=== PATIENT | female | born 1990 | race Caucasian/White ===

== ENCOUNTER 2020-01-19 12:20 | Emergency (ER) | payer OTHER, SELFPAY ==
[2020-01-19 12:21] VITALS: BP 118/87; PULSE 104; RESP 20; TEMP 37; O2SAT 97; BMI 32.9
--- NOTE | 2020-01-19 12:56 | HMH.EDGENADL ---
ED Disposition Clinical Impression: Mastitis Disposition: Home, Self-Care Condition on Discharge: Good Instructions: DI for Acute Pain -- Adult Additional Instructions: Please apply warm compresses to to the right breast. Prescriptions: Sulfamethoxazole/Trimethoprim [Bactrim DS tablet] 1 each PO BID 10 Days #20 tab Transmission Status: Sent to [id number] Acetaminophen with Codeine [Tylenol with Codeine #3 tablet] 1 each PO QID 3 Days #12 tab Prescription Printed Referrals: Oneil Stoddard MD [Primary Care Provider] - - Critical Care Critical Care Time: No Attestation: On 01/19/20, the high probability of a clinically significant, sudden or life threatening deterioration of the following system(s) required my full and direct attention, intervention and personal management. The time I documented below is in addition to time spent performing reported procedures but includes the following listed in this critical care notation. Medical Decision Making - Medical Records Medical records reviewed: Yes: I reviewed the patient's medical records. - Rodrigo Inquiry Pt receiving controlled substance: No Vital Signs: 01/19/20 12:21 Temperature 98.6 F Temperature Source Oral Pulse Rate [Right] 104 H Respiratory Rate 20 Blood Pressure [Right Arm] 118/87 Blood Pressure Mean [Right Arm] 97 02 Sat by Pulse Oximetry 97 - Lab Data Lab results reviewed: Yes: I reviewed the patient's lab results. Orders (Tests/Meds): ED MEDICATIONS Generic Name Dose Route Start Last Admin Trade Name Freq PRN Reason Stop Dose Admin Ibuprofen 800 mg 01/19/20 12:41 Motrin 600mg Tablet PO 02/18/20 12:40 Q6HP PRN As Needed for Fever or Pain General Adult HPI - General Chief complaint: PAIN Stated complaint: breast pain Time Seen by Provider: 01/19/20 12:56 Mode of Arrival: Ambulatory Source of Information: Patient Limitations: No Limitations Description of Symptoms (Recalled from ER Triage Doc. by RN): Pt is currently in extreme pain in her right breast since 1030 this am after pumping. Pt currently is 10 week PP. States the breast milk pumped from her breast this am was normal in color and no odor. - History of Present Illness HPI narrative: 29-year-old female presents the ED complaining about pain in her right breast. She has been breast-feeding for several weeks now and she states that when she went to breast-feed earlier today that she felt extreme pain in the right breast and also felt warm and she is got some redness on the inner part of the right breast as well. She noticed this about 12 hours ago. And is progressively gotten worse. She rates her pain 8 out of 10 she classifies it as sharp and pressure on a full sensation. She describes no alleviating factors exacerbating factors include any movement whatsoever and also of course pumping or breast-feeding. Onset (ago): hour(s) - Related Data Previous Rx's Medication Instructions Recorded Acetaminophen with Codeine 1 each PO QID 3 Days #12 tab 01/19/20 [Tylenol with Codeine #3 tablet] Sulfamethoxazole/Trimethoprim 1 each PO BID 10 Days #20 tab 01/19/20 [Bactrim DS tablet] Allergies Allergy/AdvReac Type Severity Reaction Status Date / Time NO KNOWN ALLERGIES - NKA Allergy Mild Uncoded 04/11/19 16:34 [facility] History - Hepatitis A Screen Drug use history?: No High risk sexual behaviors?: No History of sexually transmitted infection?: No Currently employed?: No Childcare worker?: No Do you have indoor plumbing?: Yes Do you have electricity?: Yes Attestation statement:: This patient has been screened for Hepatitis A risk factors. I have reviewed the patient's past medical history: Yes Medical History: Reports:: Anxiety, Depression Other Medical History: Reports: Other (aortic stenosis) Other Surgeries: Yes: No Previous Surgery Amputation: No Fractures: No - Social History Smoking Status: Angela
[2020-01-19 13:18] VITALS: BP 120/70; PULSE 98; RESP 16; TEMP 37; O2SAT 98
== END 2020-01-19 13:19 | disposition home or self-care (01) ==
PROVIDERS: Emergency Provider Family Medicine; PCP Family Medicine
DX: F41.8 Other specified anxiety disorders; I35.0 Nonrheumatic aortic (valve) stenosis
CPT/HCPCS: 99281

== ENCOUNTER → 2020-06-15 16:32 | Outpatient (CLI) | payer OTHER, SELFPAY | PROVIDERS: PCP Family Medicine; Visit Provider Family Medicine | DX: Z03.818 Encounter for observation for suspected exposure to other biological agents ruled out (principal) | CPT/HCPCS: U0003 ==

== ENCOUNTER → 2020-10-12 12:16 | Outpatient (CLI) | payer OTHER, SELFPAY ==
[2020-10-12 13:48] LABS: Basophils # 0.1 K/mm3 (0-0.2); Basophils % 0.7 % (0.1-2.0); Eosinophils # 0.1 K/mm3 (0.0-0.4); Eosinophils % 0.9 % (0.1-12.0); Hematocrit 47.6 % (37.0-47.0); Hemoglobin 15.2 g/dL (12.2-16.2); Lymphocytes # 1.8 K/mm3 (0.7-4.5); Lymphocytes % 21.1 % (10-50); Mean Corpuscular HGB Conc 31.8 g/dL (31.8-35.4); Mean Corpuscular Hemoglobin 29.2 pg (27.0-31.2); Mean Corpuscular Volume 91.8 fl (81-99); Mean Platelet Volume 9.3 fl (7.4-10.4); Monocytes # 0.3 K/mm3 (0.1-1.0); Monocytes % 3.7 % (1.7-9.3); Neutrophils # 6.2 K/mm3 (1.8-7.8); Neutrophils % 73.6 % (37.0-80.0); Platelet Count 187 K/mm3 (142-424); Red Blood Count 5.19 M/mm3 (4.20-5.40); White Blood Count 8.4 K/mm3 (4.8-10.8)
== END ==
PROVIDERS: PCP Family Medicine; Visit Provider Family Medicine
DX: Z20.822 Contact with and (suspected) exposure to COVID-19 (principal)
CPT/HCPCS: 85025; U0003

== ENCOUNTER → 2021-07-13 11:54 | Outpatient (CLI) | payer OTHER, SELFPAY ==
[2021-07-13 12:34] LABS: Coronavirus 19, PCR Not Detected (NotDetected); Influenza A, PCR Not Detected (NotDetected); Influenza B, PCR Not Detected (NotDetected)
[2021-07-13 12:48] LABS: Basophils % 0.3 % (0.1-2.0); Eosinophils # 0.1 K/mm3 (0.0-0.4); Eosinophils % 1.3 % (0.1-12.0); Hematocrit 44.4 % (37.0-47.0); Hemoglobin 14.3 g/dL (12.2-16.2); Lymphocytes # 1.9 K/mm3 (0.7-4.5); Lymphocytes % 18.3 % (10-50); Mean Corpuscular HGB Conc 32.3 g/dL (31.8-35.4); Mean Corpuscular Hemoglobin 30.1 pg (27.0-31.2); Mean Corpuscular Volume 93.2 fl (81-99); Mean Platelet Volume 9.6 fl (7.4-10.4); Monocytes # 0.6 K/mm3 (0.1-1.0); Monocytes % 5.7 % (1.7-9.3); Neutrophils # 7.6 K/mm3 (1.8-7.8); Neutrophils % 74.3 % (37.0-80.0); Platelet Count 169 K/mm3 (142-424); Red Blood Count 4.76 M/mm3 (4.20-5.40); Red Cell Distribution Width 12.7 % (11.5-17.5); White Blood Count 10.2 K/mm3 (4.8-10.8)
[2021-07-13 13:49] LABS: Strep Scrn Group A (Rapid) Negative (Negative)
== END ==
PROVIDERS: PCP Family Medicine; Visit Provider Family Medicine
DX: Z20.822 Contact with and (suspected) exposure to COVID-19 (principal)
CPT/HCPCS: 36415; 85025; 87430; C9803; U0003; U0005

== ENCOUNTER → 2021-09-20 09:55 | Outpatient (CLI) | payer OTHER, SELFPAY | PROVIDERS: Visit Provider Nurse Practitioner | DX: U07.1 COVID-19 (principal) | CPT/HCPCS: C9803; U0003; U0005 ==

== ENCOUNTER → 2021-10-12 10:31 | Outpatient (CLI) | payer OTHER, SELFPAY ==
[2021-10-12 10:59] LABS: Basophils # 0.2 K/mm3 (0-0.2); Basophils % 3.3 % (0.1-2.0); Eosinophils # 0.1 K/mm3 (0.0-0.4); Hematocrit 42.4 % (37.0-47.0); Hemoglobin 13.5 g/dL (12.2-16.2); Lymphocytes # 1.9 K/mm3 (0.7-4.5); Lymphocytes % 26.6 % (10-50); Mean Corpuscular HGB Conc 31.8 g/dL (31.8-35.4); Mean Corpuscular Hemoglobin 29.8 pg (27.0-31.2); Mean Corpuscular Volume 93.9 fl (81-99); Mean Platelet Volume 10.1 fl (7.4-10.4); Monocytes # 0.4 K/mm3 (0.1-1.0); Monocytes % 5.9 % (1.7-9.3); Neutrophils # 4.8 K/mm3 (1.8-7.8); Neutrophils % 66.5 % (37.0-80.0); Platelet Count 172 K/mm3 (142-424); Red Blood Count 4.52 M/mm3 (4.20-5.40); Red Cell Distribution Width 13.3 % (11.5-17.5); White Blood Count 7.2 K/mm3 (4.8-10.8)
[2021-10-14 03:37] LABS: HIV Screen 4th Generation wRfx Non Reactive (Non Reactive)
[2021-10-14 06:16] LABS: HSV 1 IgG, Type Spec <0.91 index (0.00-0.90); HSV 2 IgG, Type Spec <0.91 index (0.00-0.90); Rubella Antibodies, IgG 5.97 index (Immune >0.99)
[2021-10-14 08:15] LABS: Hepatitis B Surface Antigen Negative (Negative); Hepatitis C Antibody <0.1 s/co ratio (0.0-0.9)
[2021-10-14 10:11] LABS: Rapid Plasma Reagin Ab Titer Non Reactive (NonRea<1:1)
== END ==
PROVIDERS: PCP Family Medicine; Visit Provider Nurse Practitioner Obstetrics & Gynecology
DX: Z34.90 Encounter for supervision of normal pregnancy, unspecified, unspecified trimester (principal); Z3A.01 Less than 8 weeks gestation of pregnancy
CPT/HCPCS: 36415; 85025; 86592; 86695; 86703; 86762; 86790; 86850; 87340; 87380; G0432

== ENCOUNTER → 2021-10-18 14:59 | Outpatient (CLI) | payer OTHER, SELFPAY ==
--- NOTE | 2021-10-18 15:03 | US_ITS ---
FINAL REPORT CLINICAL HISTORY: US OB Before 14 wks for DATES/Confirmation of preg FINDINGS: Sonographic images of the pelvis were obtained. There is a single living intrauterine . Average ultrasound age is 7 weeks, 5 days. Yolk sac measures 0.48 cm. Green-rump length is 1.32 cm consistent with 7 week 5 day gestation. Heart rate is detected at 157 bpm. The right ovary measures 2.54 x 1.1 x 1.6 cm. Left ovary measures 4.8 x 4.5 x 4.5 cm. There is a 4.0 cm left ovarian cyst, likely corpus luteum. IMPRESSION: Single living intrauterine . Reviewed, Interpreted and Dictated by Patric Mendez III, MD Transcribed by Yanci Longoria Authenticated by Patric Mendez III, MD on 10/19/2021 09:06:36 AM [facility]
== END ==
PROVIDERS: PCP Family Medicine; Visit Provider Nurse Practitioner Obstetrics & Gynecology
DX: O26.841 Uterine size-date discrepancy, first trimester (principal)
CPT/HCPCS: 76801

== ENCOUNTER → 2022-01-08 13:56 | Outpatient (CLI) | payer OTHER, SELFPAY ==
--- NOTE | 2022-01-08 13:57 | US_ITS ---
FINAL REPORT CLINICAL HISTORY: 20 weeks gestation FINDINGS: There is a single live intrauterine gestation. Presentation is breech. The cervix is closed and measures 3.7 cm . Placenta is posterior grade 1. movement is noted. Heart rate is measured at 144 beats per minute. Three-vessel cord with satisfactory umbilical cord insertion. Four-chamber heart is noted. brain and ventricles are unremarkable. Chest and diaphragm are unremarkable. ABDOMEN: Both kidneys are unremarkable. Stomach is unremarkable. SPINE: No anomalies identified. Both arms and legs noted. AMNIOTIC FLUID: Appropriate amount. MEASUREMENTS: ULTRASOUND AGE: 19 weeks 2 days. GESTATION AGE: 19 weeks 3 days. ESTIMATED WEIGHT: 288 g GROWTH PERCENTILE: 41% BPD: 4.4 cm corresponding with 19 weeks 2 days. OFD: 5.6 cm corresponding with 19 weeks 5 days. HC: 15.8 cm corresponding with 18 weeks 5 days. AC: 13.9 cm corresponding with 19 weeks 2 days. FL: 3.1 cm corresponding with 19 weeks 5 days. HC/AC: 1.14 CI: 77% FL/BPD: 71% FL/AC: 22% IMPRESSION: Single living IUP with an ultrasound age of 19 weeks 2 days. No anomalies noted. Reviewed, Interpreted and Dictated by Patric Mendez III, MD Transcribed by Zoe Townsend Authenticated by Patric Mendez III, MD on 01/08/2022 05:01:25 PM [facility]
== END ==
PROVIDERS: PCP Family Medicine; Visit Provider Nurse Practitioner Obstetrics & Gynecology
DX: Z34.90 Encounter for supervision of normal pregnancy, unspecified, unspecified trimester (principal); Z3A.20 20 weeks gestation of pregnancy
CPT/HCPCS: 76811

== ENCOUNTER → 2022-03-03 07:57 | Outpatient (CLI) | payer OTHER, SELFPAY ==
[2022-03-03 08:24] LABS: Glucose,Fasting 95 mg/dl (74-100)
[2022-03-03 09:47] LABS: Glucose 1 Hour 147 mg/dL (74-100)
== END ==
PROVIDERS: PCP Family Medicine; Visit Provider Nurse Practitioner Obstetrics & Gynecology
DX: Z34.90 Encounter for supervision of normal pregnancy, unspecified, unspecified trimester (principal)
CPT/HCPCS: 36415; 82951

== ENCOUNTER → 2022-03-10 07:57 | Outpatient (CLI) | payer OTHER, SELFPAY ==
[2022-03-10 08:39] LABS: Glucose,Fasting 93 mg/dl (74-100)
[2022-03-10 10:38] LABS: Glucose 1 Hour 171 mg/dL (74-100)
[2022-03-10 10:53] LABS: Glucose 2 Hour 124 mg/dL (74-100)
[2022-03-10 12:40] LABS: Glucose 3 Hour 136 mg/dL (74-100)
== END ==
PROVIDERS: PCP Family Medicine; Visit Provider Obstetrics & Gynecology
DX: Z34.90 Encounter for supervision of normal pregnancy, unspecified, unspecified trimester; R73.09 Other abnormal glucose
CPT/HCPCS: 36415; 82951

== ENCOUNTER 2022-04-24 16:47 | Outpatient (RCR) | payer OTHER, SELFPAY | END 2022-04-24 17:20 | disposition home or self-care (01) | LOC: OT 16:47 | DX: G56.03 Carpal tunnel syndrome, bilateral upper limbs (principal) | CPT/HCPCS: 97763 ==

== ENCOUNTER → 2022-05-08 06:26 | Outpatient (CLI) | payer OTHER, SELFPAY | PROVIDERS: Visit Provider Nurse Practitioner Obstetrics & Gynecology | DX: Z34.90 Encounter for supervision of normal pregnancy, unspecified, unspecified trimester (principal) | CPT/HCPCS: 86403 ==

== ENCOUNTER 2022-05-23 05:46 | Inpatient (IN) | payer OTHER, SELFPAY ==
[2022-05-23] VITALS (12 sets, daily range): BP systolic 126–155; BP diastolic 74–88; PULSE 83–96; RESP 14–20; TEMP 36.2–36.7; O2SAT 95–99; BMI 39.1
[2022-05-23 04:38] LABS: Microscopic, Urine URINE MICROSCOPIC (MICROSCOPIC)
[2022-05-23 04:40] LABS: Appearance,Urine CLEAR (Clear); Bilirubin,Urine Negative (Negative); Blood, Urine 2+ (Negative); Color,Urine YELLOW (Yellow); Fetal Membrane Rupture (Rapid) Positive (Negative); Glucose,Urine (UA) Negative (Negative); Ketones,Urine Negative (Negative); Leukocyte Esterase,Urine TRACE (Negative); Nitrate,Urine Negative (Negative); PH,Urine 6.5 (5.0-8.5); Protein,Urine Negative (Negative); Specific Gravity, Urine <= 1.005 (1.005-1.030); Urobilinogen,Urine 0.2 EU/dl (0.2)
[2022-05-23 04:53] LABS: Barbiturates Screen,Urine Negative ng/ml (<200); Benzodiazepines Screen,Urine Negative ng/ml (<200)
[2022-05-23 04:54] LABS: Amphetamine/Metha Screen,Urine Negative ng/ml (<1000)
[2022-05-23 04:55] LABS: Cannabinoid Screen,Urine Negative ng/ml (<50); Cocaine Screen,Urine Negative ng/ml (<300)
[2022-05-23 04:56] LABS: Methadone Screen,Urine Negative ng/ml (<300); Opiate Screen,Urine Negative ng/ml (<300)
[2022-05-23 04:57] LABS: Phencyclidine Screen,Urine Negative ng/ml (<25)
[2022-05-23 05:25] LABS: Coronavirus 19, PCR Not Detected (NotDetected); Influenza A, PCR Not Detected (NotDetected); Influenza B, PCR Not Detected (NotDetected)
[2022-05-23 05:33] LABS: Basophils # 0.1 K/mm3 (0-0.2); Basophils % 1.1 % (0.1-2.0); Chloride 109 mmol/L (98-107); Eosinophils # 0.1 K/mm3 (0.0-0.4); Eosinophils % 0.8 % (0.1-12.0); Hemoglobin 13.5 g/dL (12.2-16.2); Lymphocytes % 19.4 % (10-50); Mean Corpuscular HGB Conc 32.8 g/dL (31.8-35.4); Mean Corpuscular Hemoglobin 29.9 pg (27.0-31.2); Mean Corpuscular Volume 91.1 fl (81-99); Mean Platelet Volume 10.6 fl (7.4-10.4); Monocytes # 0.6 K/mm3 (0.1-1.0); Monocytes % 5.5 % (1.7-9.3); Neutrophils # 7.6 K/mm3 (1.8-7.8); Neutrophils % 73.1 % (37.0-80.0); Platelet Count 155 K/mm3 (142-424); Potassium 3.9 mmoL/L (3.5-5.1); Red Blood Count 4.51 M/mm3 (4.20-5.40); Red Cell Distribution Width 14.8 % (11.5-17.5); Sodium 137 mmol/L (136-145); White Blood Count 10.3 K/mm3 (4.8-10.8)
[2022-05-23 05:36] LABS: Anion Gap 10.9 mEq/L (5-15); Blood Urea Nitrogen 6 mg/dl (7-17); Calcium 7.8 mg/dl (8.4-10.2); Carbon Dioxide 21 mmol/L (22.0-30.0); Creatinine Clearance Estimated 208 mL/min (50-200); Estimated Glomerular Filt Rate 117 ml/min (>60); GFR (African American) 141 ML/MIN (>60); Glucose 85 mg/dl (74-100)
[2022-05-23 05:37] LABS: Bacteria,Urine 1+ /lpf; Squamous Epithelial Cell,Urine 20-50 #/hpf (0-5); WBC,Urine Occasional #/hpf (0-3)
--- NOTE | 2022-05-23 06:05 | PC.NURSE ---
CALL FROM LAURIE CARR STATED EMERGENT .
--- NOTE | 2022-05-23 06:06 | PC.NURSE ---
SPOKE WITH DIDI FOR ANESTHESIA.
--- NOTE | 2022-05-23 06:08 | PC.NURSE ---
SPOKE WITH BISMARK
--- NOTE | 2022-05-23 07:52 | EXP.OP.NOTE ---
Date of procedure: 05/23/22 Pre-op Diagnosis:: Term , bicuspid aortic valve, Post-op Diagnosis:: Term , bicuspid aortic valve, direct OP position. Procedure performed:: Primary lower segment transverse section Surgeon:: Arnie Rajput MD Access Specialist(s):: Dr. Tomas SOLAR PV INSTALLER:: Other (Rj Shahid) Anesthesia: spinal Estimated blood loss (mL): 1,500 Clinical Note:: She is a 31-year-old 2 para 1 who was 38 and 6 weeks gestational age. She was scheduled for a primary tomorrow. She came in in active labor with ruptured membranes. She changed her cervix from 0 to 4 cm. As result of that we elected to perform her section urgently. It was recommended that she have a section because she has a bicuspid aortic valve and throughout the her pressures have risen across the valve from 12-28. It was recommended that she have a section and not push in labor. As result of that she was offered primary lower segment transverse section. Operative findings:: She delivered a liveborn female child at 6:58 AM on the morning of May 23, 2022. The baby had Apgars of 8 at 1 minute and 9 at 5 minutes. The baby was in the direct OP position. Ovaries and tubes appeared normal. Operative note:: She was taken to the operating room where spinal anesthesia was found be adequate. She was prepped and draped in normal sterile fashion in the supine position with a leftward tilt. A Arizmendi catheter was in the bladder. A Pfannenstiel skin incision was made with knife then carried through to the underlying layer of fascia with cautery. The fascia was opened in the midline with cautery and extended laterally using Enriquez scissors. Michele clamps were applied to the superior aspect of the fascial incision which was tented up and the underlying rectus muscles dissected off using cautery. The Rye clamps were then applied to the inferior aspect of the fascial incision which in a similar fashion was tented up and the underlying rectus muscles dissected off using cautery. The rectus muscles were then in the midline, the peritoneum identified, and entered sharply with Metzenbaum scissors. This incision was then extended superiorly and inferiorly with cautery. We had good visualization of the bladder inferiorly. An Lamont retractor was placed within the abdominal cavity. The bladder peritoneum was then opened in the midline and extended laterally using Metzenbaum scissors. A bladder flap was created digitally. Transverse incision was made through the uterine muscle to the amnion. This incision was then extended laterally using fingers traction pulling superiorly and inferiorly.. The amnion was entered sharply with knife. There was clear amniotic fluid. The infant's head was then delivered atraumatically. A loose nuchal cord was then reduced. This was followed by the anterior shoulder and the rest of the 's body atraumatically. The oropharynx and nasopharynx were bulb suctioned. The baby was vigorous so we allowed the cord to continue to pulsate for approximately 1 minute. The cord was then doubly clamped and cut. The infant was then handed off to Dr. Lau who assigned Apgars of 8 at 1 minute and 9 at 5 minutes. We then obtained cord blood. Using gentle traction on the cord and countertraction on the fundus I was able to easily deliver the placenta intact. It had a normal three-vessel cord. The uterus was then cleared of clots and debris . There was some bleeding along the left side of the incision and the vessel was pumping air so we placed a clamp here. The uterine incision was then closed using running 0 Vicryl suture in a locked fashion. A second layer of the same suture was used to imbricate the first layer. There was bleeding in the medial aspect of the incision and interrupted [id number] Vicryl sutures were used to obtain excellent hemostasis. The bladder peritoneum was then closed u
--- NOTE | 2022-05-23 08:01 | EXP.ANES.CKL ---
[facility] Social History Smoking Status: Never smoker alcohol intake: never substance use type: denies use current occupational status: employed Travel in the last 8 weeks: None [facility] Anesthesia Checklist Patient Identification Patient Identification: Arm Band and Verbal (Name & ) Structural Data Admitted From: Home Planned Operative Procedure/s: Consent for Planned Operative Procedure(s) Verified: Yes Verified Documents: Surgical Consent NPO Status Verified Time NPO: 00:00 Chart Verification Results Verified: H & H Additional verifications Patient : Yes Anesthesia Reactions: No Hx Blood Transfusions: No Blood Transfusion Reaction: No Cephalosporin Allergy: No Airway Assessment C-Spine Mobility Assessed: Yes TMJ Mobility Assessed: Yes Dentition: Good Dentition Neurological Assessment Level of Consciousness: Awake, Alert and Appropriate Anesthesia Plan Anesthesia Risk discussed: Yes ASA Class: II Anesthesia Type: Spinal
--- NOTE | 2022-05-23 08:02 | P.PNANES_ITS ---
[facility] Anesthesia Record Part I Anesthesia Record I Intake, IV Amount: 1,100 Estimated blood loss (mL): 1,500 Urine output (mL): 100 Blood Pressure: 147/86 SaO2: 95 Pulse Rate: 86 Respiratory Rate: 14 Temperature: 97.1 F Patient is:: Drowsy Stable to PACU at:: 07:56
--- NOTE | 2022-05-23 08:02 | EXP.HP ---
History of Present Illness *Admission Date: 05/23/22 *Reason for visit:: Term , bicuspid aortic valve, active labor, SROM *History of present illness: She is a 31-year-old 2 para 1 at 38+6 weeks gestational age. She came in with ruptured membranes and active labor. She changed her cervix from 0 to 4 cm and as result of that we elected to perform a primary lower segment transverse section. She is also group B streptococcus positive. PFSH PFS Social History Smoking Status: Never smoker alcohol intake: never substance use type: denies use current occupational status: employed Travel in the last 8 weeks: None Review of Systems Review of Systems Review of systems:: pertinent systems reviewed and negative unless documented below Meds Home Medications and Allergies Home Medications Medication Instructions Recorded Confirmed Type prenat.vits,elfego,hca-ghfl-sdloj 1 tab PO DAILY 01/03/22 05/22/22 History ferrous sulfate 325 mg (65 mg 325 mg PO DAILY #30 tabs 01/08/22 05/22/22 Rx iron) tablet New Prescriptions to Start Prescriptions: Allergies Allergy/AdvReac Type Severity Reaction Status Date / Time No Known Allergies Allergy Verified 05/22/22 16:01 Exam Data for Last 24 hours Vital signs and Labs for Last 24 Hours: Temp Pulse Resp BP Pulse Ox 98.1 F 96 H 20 126/85 99 05/23/22 04:35 05/23/22 04:35 05/23/22 04:35 05/23/22 04:35 05/23/22 04:35 Laboratory Results - last 24 hr 05/23/22 04:13: Urine Color Yellow, Urine Appearance Clear, Urine pH 6.5, Ur Specific [place] <= 1.005, Urine Protein Negative, Urine Glucose (UA) Negative, Urine Ketones Negative, Urine Blood 2+, Urine Nitrate Negative, Urine Bilirubin Negative, Urine Urobilinogen 0.2, Ur Leukocyte Esterase Trace, Urine RBC 5-10, Urine WBC Occasional, Ur Squamous Epith Cells 20-50, Urine Bacteria 1+ 05/23/22 04:13: Membrane Rupture Positive A 05/23/22 04:13: Urine Opiates Screen Negative, Urine Methadone Screen Negative, Ur Barbituates Screen Negative, Ur Phencyclidine Scrn Negative, Ur Amphetamines Screen Negative, U Benzodiazepines Scrn Negative, Urine Cocaine Screen Negative, U Marijuana (THC) Screen Negative 05/23/22 05:10: WBC 10.3, RBC 4.51, Hgb 13.5, Hct 41.0, MCV 91.1, MCH 29.9, MCHC 32.8, RDW 14.8, Plt Count 155, MPV 10.6 H, Neut % (Auto) 73.1, Lymph % (Auto) 19.4, [place] % (Auto) 5.5, Eos % (Auto) 0.8, Baso % (Auto) 1.1, Neut # (Auto) 7.6, Lymph # (Auto) 2.0, [place] # (Auto) 0.6, Eos # (Auto) 0.1, Baso # (Auto) 0.1 05/23/22 05:10: Sodium 137, Potassium 3.9, Chloride 109 H, Carbon Dioxide 21 L, Anion Gap 10.9, BUN 6 L, Creatinine 0.60, Estimated Creat Clear 208, Estimated GFR 117, Est GFR ( Amer) 141, Glucose 85, Calcium 7.8 L 05/23/22 05:10: Blood Type O Positive, Antibody Screen Negative 05/23/22 05:15: SARS-CoV-2 (PCR) Not detected, Influenza A Untype (PCR) Not detected, Influenza Type B (PCR) Not detected I & O for Last 24 hours: Intake & Output 05/20/22 05/21/22 05/22/22 05/23/22 11:59 11:59 11:59 11:59 Weight 214 lb Constitutional Constitutional: no acute distress *Routine HEENT Exam Head: Present normocephalic Eye: Present EOMI and PERRL ENT: Present mucous membranes moist *Routine Neck Exam Neck: Present supple and full ROM *Routine Respiratory Exam Respiratory: Absent accessory muscle use (good air entry bilaterally), wheezes or crackles *Routine Cardiovascular Exam Cardiovascular: Present RRR; Absent murmur *Routine Abdominal Exam Abdominal: Present soft and normoactive bowel sounds; Absent tenderness, rebound, guarding or mass *Routine Rectal Exam Rectal:: deferred *Routine Genitalia Exam Genitalia:: normal female Comment:: 4 cm dilated. *Routine Extremities Exam Extremities: Present full ROM; Absent cyanosis, edema or calf tenderness *Routine Skin Exam Skin: Present intact (good color) *Routine Neurological E
--- NOTE | 2022-05-23 08:04 | P.CONPHA_ITS ---
[facility] VTE Monitoring Patient Demographics Admission date: 05/22/22 Report Date: 05/23/22 Time: 08:05 Patient Allergies No Known Allergies Allergy (Verified 05/22/22 16:01) Height: 1.57 m Weight: 97.069 kg VTE Risk Labs: VTE Related Lab Results Hgb 13.5 g/dL (12.2-16.2) 05/23/22 05:10 Hct 41.0 % (37.0-47.0) 05/23/22 05:10 Plt Count 155 K/mm3 (142-424) 05/23/22 05:10 BUN 6 mg/dl (7-17) L 05/23/22 05:10 Creatinine 0.60 mg/dl (0.52-1.04) 05/23/22 05:10 Estimated Creat Clear 208 mL/min (50-200) 05/23/22 05:10 Clinical Trial Participant: No Prophylaxis VTE Prophylaxis Ordered?: Yes Types of VTE Prophylaxis: TEDS Knee High
--- NOTE | 2022-05-23 09:24 | EXP.ANES.II ---
[facility] Anesthesia Record Part II Anesthesia Record Part II Destination: Obstetric PACU nurse assessment reviewed?: Yes Patient Condition:: Good Anesthesia Complications:: None Swallowing reflex intact?: Yes Cyanosis?: No Mental Status: Alert & Oriented Pain level:: 0 Nausea and/or vomitting:: None Intake, IV Amount: 0
[2022-05-23 14:38] LABS: Microscopic,Cath URINE MICROSCOPIC (MICROSCOPIC)
[2022-05-23 14:43] LABS: Appearance,Urine/Cath CLEAR (Clear); Bilirubin,Cath Negative (Negative); Blood, Urine/Cath 3+ (Negative); Color,Urine/Cath YELLOW (Yellow); Glucose,Urine/Cath (UA) Negative (Negative); Ketones,Urine/Cath Negative (Negative); Leukocyte Esterase,Cath Negative (Negative); Nitrate,Cath Negative (Negative); Protein,Urine/Cath Negative (Negative); Urobilinogen,Cath 0.2 EU/dl (0.2)
[2022-05-23 15:28] LABS: RBC,Urine/Cath 20-50 # /hpf (0-3)
[2022-05-23 16:35] LABS: Hematocrit 45.7 % (37.0-47.0); Hemoglobin 14.5 g/dL (12.2-16.2)
[2022-05-24 07:20] LABS: Basophils % 0.1 % (0.1-2.0); Eosinophils % 0.3 % (0.1-12.0); Hematocrit 30.9 % (37.0-47.0); Lymphocytes # 1.6 K/mm3 (0.7-4.5); Lymphocytes % 17.1 % (10-50); Mean Corpuscular HGB Conc 33.1 g/dL (31.8-35.4); Mean Corpuscular Hemoglobin 30.2 pg (27.0-31.2); Mean Corpuscular Volume 91.4 fl (81-99); Mean Platelet Volume 9.9 fl (7.4-10.4); Monocytes # 0.5 K/mm3 (0.1-1.0); Monocytes % 5.4 % (1.7-9.3); Platelet Count 139 K/mm3 (142-424); Red Blood Count 3.38 M/mm3 (4.20-5.40); Red Cell Distribution Width 14.9 % (11.5-17.5); White Blood Count 9.1 K/mm3 (4.8-10.8)
[2022-05-24 07:22] LABS: Hemoglobin 10.2 g/dL (12.2-16.2)
--- NOTE | 2022-05-24 09:13 | EXP.ACUTE.PN ---
Subjective *Date: 05/24/22 *Time: 09:13 Interval history: She is doing well this morning. Her hemoglobin is 10.1. She complains of burning pain in her incision. She did have a tap block yesterday. Her vitals are otherwise stable. Medical Exam Vital signs and Labs for Last 24 Hours: Temp Pulse Resp BP Pulse Ox 97.1 F L 86 14 147/86 H 99 05/23/22 08:04 05/23/22 08:04 05/23/22 08:04 05/23/22 08:04 05/23/22 04:35 Laboratory Results - last 24 hr 05/23/22 06:45: Urine Color Yellow, Urine Appearance Clear, Urine pH 6.0, Ur Specific [place] 1.010, Urine Protein Negative, Urine Glucose (UA) Negative, Urine Ketones Negative, Urine Blood 3+, Urine Nitrate Negative, Urine Bilirubin Negative, Urine Urobilinogen 0.2, Ur Leukocyte Esterase Negative, Urine RBC 20-50, Urine WBC None, Ur Squamous Epith Cells None, Urine Bacteria None 05/23/22 16:15: Hgb 14.5, Hct 45.7 05/24/22 06:30: WBC 9.1, RBC 3.38 L D, Hgb 10.2 L D, Hct 30.9 L, MCV 91.4, MCH 30.2, MCHC 33.1, RDW 14.9, Plt Count 139 L, MPV 9.9, Neut % (Auto) 77.0, Lymph % (Auto) 17.1, [place] % (Auto) 5.4, Eos % (Auto) 0.3, Baso % (Auto) 0.1, Neut # (Auto) 7.0, Lymph # (Auto) 1.6, [place] # (Auto) 0.5, Eos # (Auto) 0.0, Baso # (Auto) 0.0 I & O for Labs for Last 24 Hours: Intake & Output 05/21/22 05/22/22 05/23/22 05/24/22 11:59 11:59 11:59 11:59 Intake Total 1100 / 1100 Balance 1100 / 1100 Weight 214 lb Head: Present atraumatic Neck: Present normal inspection Respiratory: Present normal respiratory effort GI: Present soft and scar (Her incision is clean and dry.); Absent distention or tenderness Rectal (female): Present deferred Assessment and Plan *Assessment and plan (1) delivery delivered: Status: Acute Category: Medical Code(s): O82 - Encounter for delivery without indication (2) Delayed delivery after SROM (spontaneous rupture of membranes): Status: Acute Category: Medical Code(s): O42.90 - Premature rupture of membranes, unspecified as to length of time between rupture and onset of labor, unspecified weeks of gestation (3) Aortic valve defect: Status: Acute Category: Medical Code(s): I35.9 - Nonrheumatic aortic valve disorder, unspecified Assessment and plan all Dx Assessment and Plan All Dx:: She is doing well although she does have some burning in her incision. On examination of her abdomen the incision actually is nontender and she cannot feel the incision at all after the tap block. I suspect the discomfort she has is on the inside. She has taken some hydromorphone and this seemed to help. We will continue with her Tylenol, ibuprofen and we will start oral hydromorphone. She should be able to go home tomorrow.
--- NOTE | 2022-05-25 10:04 | EXP.ANES.II ---
[facility] Anesthesia Record Part II Anesthesia Record Part II Discharge Time: 08:26 Destination: Obstetric PACU nurse assessment reviewed?: Yes Patient Condition:: Good Anesthesia Complications:: None Swallowing reflex intact?: Yes Cyanosis?: No Blood Pressure: 143/74 Pulse Rate: 87 Temperature: 97.1 F Mental Status: Alert & Oriented Pain level:: 0 Nausea and/or vomitting:: None Intake, IV Amount: 0
[2022-05-25 10:05] VITALS: BP 143/74; PULSE 87; TEMP 36.2
--- NOTE | 2022-05-25 10:05 | SUR.PHASEI ---
[id number]- 400 ml of clear, yellow urine emptied from f/c upon d/c from pacu.
--- NOTE | 2022-05-25 12:31 | EXP.DC.SUM ---
General Admission date:: 05/23/22 Discharge date: 05/25/22 HPI HPI HPI: She is a 31-year-old 2 para 1 at 38+6 weeks gestational age. She came in with ruptured membranes and active labor. She changed her cervix from 0 to 4 cm and as result of that we elected to perform a primary lower segment transverse section. She is also group B streptococcus positive. Hospital Course Hospital Course Hospital Course: Postop course uncomplicated She is discharged home on POD #2 in stable condition She is tolerating a regular diet She is ambulatnig and voiding without difficulty Lochia is small She had insufficient pain relief with oxycodone and was switched to dilaudid Exam Data for Last 24 hours Vital signs and Labs for Last 24 Hours: Temp Pulse Resp BP Pulse Ox 97.1 F L 87 20 143/74 H 96 05/25/22 10:05 05/25/22 10:05 05/25/22 08:01 05/25/22 10:05 05/25/22 08:01 I & O for Last 24 hours: Intake & Output 05/23/22 05/24/22 05/25/22 05/26/22 11:59 11:59 11:59 11:59 Intake Total 1100 / 1100 0 / 0 Balance 1100 / 1100 0 / 0 Weight 214 lb Constitutional Constitutional: no acute distress *Routine HEENT Exam Head: Present normocephalic Eye: Absent conjunctival icterus or scleral injection ENT: Present mucous membranes moist *Routine Neck Exam Neck: Present supple *Routine Respiratory Exam Respiratory: Present CTA bilaterally *Routine Cardiovascular Exam Cardiovascular: Present RRR *Routine Abdominal Exam Abdominal: Present soft; Absent tenderness or distended *Routine Rectal Exam Patient deferred: visual exam and digital exam *Routine Exam Patient deferred: external exam Comments: Fundus firm below umbilicus *Routine Extremities Exam Extremities: Present edema *Routine Skin Exam Skin: Present intact and dry Comments: Incision intact without erythema or purulent drainage *Routine Neurological Exam Neurological: Present alert and oriented X3 Routine Psychiatric Exam Psychiatric: Present normal affect; Absent depressed DS: Diagnosis Discharge Diagnosis (1) delivery delivered: Status: Acute (2) Delayed delivery after SROM (spontaneous rupture of membranes): Status: Acute (3) Aortic valve defect: Status: Acute Meds Home Medications and Allergies Home Medications Medication Instructions Recorded Confirmed Type prenat.vits,elfego,yqd-ifqw-igbyn 1 tab PO DAILY Supplement 01/03/22 05/23/22 History ferrous sulfate 325 mg (65 mg 325 mg PO DAILY IRON SUPPLEMENT 05/23/22 05/23/22 History iron) tablet acetaminophen 325 mg tablet 650 mg PO Q6HP #30 tabs 05/25/22 Rx hydromorphone 2 mg tablet 2 mg PO Q6HP PRN Moderate To 05/25/22 Rx Severe Pain #30 tabs ibuprofen 400 mg tablet 800 mg PO Q6HP PRN Mild To 05/25/22 Rx Moderate Pain #40 tabs New Prescriptions to Start Prescriptions: acetaminophen Michel Doughertya hydromorphone Farhat,Елена ibuprofen Елена Dougherty Allergies Allergy/AdvReac Type Severity Reaction Status Date / Time No Known Allergies Allergy Verified 05/22/22 16:01 Discharge Plan Disposition Patient Disposition: Home, Self-Care Discharge Order Discharge Orders: Discharge Order (Routine); Ordered 05/25/22 Ordered By: Елена Dougherty Follow up Plan Prescriptions/Medication Reconciliation: New acetaminophen 325 mg Tablet 650 mg PO Q6HP Qty: 30 0RF hydromorphone 2 mg Tablet 2 mg PO Q6HP PRN (Reason: Moderate To Severe Pain) Qty: 30 0RF ibuprofen 400 mg Tablet 800 mg PO Q6HP PRN (Reason: Mild To Moderate Pain) Qty: 40 0RF Continued prenat.vits,elfego,fbr-khsu-npsme Tablet 1 tab PO DAILY ferrous sulfate 325 mg (65 mg iron) tablet 325 mg PO DAILY Problem Reconciliation Problems Reviewed?: Yes Patient Discharge Instructions ACTIVITY: Continue current activity DIET: regular diet Prov
== END 2022-05-25 16:50 | disposition home or self-care (01) | DRG 786 ==
LOC: OBOUT 05:47 → OB 05:47
PROVIDERS: Admitting Provider Nurse Practitioner Obstetrics & Gynecology; PCP Family Medicine; Visit Provider Nurse Practitioner Obstetrics & Gynecology
PROC: 10D00Z1 Extraction of Products of Conception, Low, Open Approach (ICD-10-PCS; CPT 59514; principal; 2022-05-23 06:20)
DX: O32.8XX0 Maternal care for other malpresentation of fetus, not applicable or unspecified (principal); O99.42 Diseases of the circulatory system complicating childbirth; Z3A.38 38 weeks gestation of pregnancy; Z37.0 Single live birth; O42.92 Full-term premature rupture of membranes, unspecified as to length of time between rupture and onset of labor; I35.9 Nonrheumatic aortic valve disorder, unspecified; O99.824 Streptococcus B carrier state complicating childbirth; O32.2XX0 Maternal care for transverse and oblique lie, not applicable or unspecified; O69.81X0 Labor and delivery complicated by cord around neck, without compression, not applicable or unspecified
CPT/HCPCS: 59514; 36415; 59025; 80048; 80305; 81001; 84112; 85014; 85018; 85025; 86850; C9803; J0595; J2405; U0003; U0005

== ENCOUNTER → 2023-03-15 11:29 | Outpatient (CLI) | payer OTHER, SELFPAY ==
--- NOTE | 2023-03-15 11:33 | XR_ITS ---
FINAL REPORT CLINICAL HISTORY: Lt hip pain x yrs, worsened recently since having 2nd baby (9 mos ago). Lt hip worse than rt. Pain radiates into glutes. FINDINGS: Left hip Two views were obtained. There is no acute fracture or dislocation. The joint spaces appear normal. No soft tissue abnormality is identified. IMPRESSION: No acute process. Reviewed, Interpreted and Dictated by Patric Mendez III, MD Transcribed by Yanci Longoria Authenticated and . [facility]
--- NOTE | 2023-03-15 11:34 | XR_ITS ---
FINAL REPORT CLINICAL HISTORY: Rt hip pain x yrs, worsened recently since having 2nd baby (9 mos ago). FINDINGS: Right hip Three views were obtained. There is no acute fracture or dislocation. The joint spaces appear normal. No soft tissue abnormality is identified. IMPRESSION: No acute process. Reviewed, Interpreted and Dictated by Patric Mendze III, MD Transcribed by Yanci Longoria Authenticated and [facility]
== END ==
PROVIDERS: PCP Family Medicine; Visit Provider Physician Assistant
DX: M25.551 Pain in right hip (principal); M25.552 Pain in left hip; R10.2 Pelvic and perineal pain
CPT/HCPCS: 73502

== ENCOUNTER → 2023-04-01 23:00 | Outpatient (CLI) | payer OTHER, SELFPAY | PROVIDERS: PCP Family Medicine; Visit Provider Nurse Practitioner Family | DX: B35.1 Tinea unguium; M79.675 Pain in left toe(s) | CPT/HCPCS: 87102; 87206; 87220 ==

== ENCOUNTER → 2023-04-25 11:07 | Outpatient (CLI) | payer OTHER, SELFPAY ==
[2023-04-25 12:39] LABS: Basophils # 0.1 K/mm3 (0-0.2); Basophils % 0.7 % (0.1-2.0); Eosinophils # 0.1 K/mm3 (0.0-0.4); Eosinophils % 1.3 % (0.1-12.0); Hematocrit 44.9 % (37.0-47.0); Hemoglobin 15.1 g/dL (12.2-16.2); Lymphocytes # 2.2 K/mm3 (0.7-4.5); Lymphocytes % 27.4 % (10-50); Mean Corpuscular HGB Conc 33.6 g/dL (31.8-35.4); Mean Corpuscular Hemoglobin 29.8 pg (27.0-31.2); Mean Corpuscular Volume 88.9 fl (81-99); Mean Platelet Volume 9.5 fl (7.4-10.4); Monocytes # 0.3 K/mm3 (0.1-1.0); Monocytes % 4.3 % (1.7-9.3); Neutrophils # 5.4 K/mm3 (1.8-7.8); Neutrophils % 66.4 % (37.0-80.0); Platelet Count 241 K/mm3 (142-424); Red Blood Count 5.05 M/mm3 (4.20-5.40); White Blood Count 8.1 K/mm3 (4.8-10.8)
[2023-04-25 13:08] LABS: Alanine Aminotransferase 20 U/L (12-78); Albumin Level 4.3 g/dl (3.5-5.0); Albumin/Globulin Ratio 1.6 (1.1-1.8); Alkaline Phosphatase 103 U/L (38-126); Anion Gap 13.1 mEq/L (5-15); Aspartate Amino Transferase 22 U/L (14-36); Bilirubin,Total 0.7 mg/dl (0.2-1.3); Blood Urea Nitrogen 11 mg/dl (7-17); Calcium 8.7 mg/dl (8.4-10.2); Carbon Dioxide 27 mmol/L (22.0-30.0); Chloride 103 mmol/L (98-107); Estimated Glomerular Filt Rate 83 ml/min (>60); GFR (African American) 101 ML/MIN (>60); Globulin 2.7 g/dL (1.3-3.2); Glucose 87 mg/dl (74-100); Potassium 4.1 mmoL/L (3.5-5.1); Sodium 139 mmol/L (136-145)
[2023-04-25 13:50] LABS: HCG,Quantitative < 2 mIU/ml (0-5.42)
== END ==
PROVIDERS: PCP Family Medicine; Visit Provider Nurse Practitioner Obstetrics & Gynecology
DX: Z30.09 Encounter for other general counseling and advice on contraception (principal)
CPT/HCPCS: 36415; 80053; 84702; 85025

== ENCOUNTER 2023-05-02 06:03 | Day surgery (SDC) | payer OTHER, SELFPAY ==
[2023-05-02] VITALS (9 sets, daily range): BP systolic 115–144; BP diastolic 75–88; PULSE 81–102; RESP 12–18; TEMP 36.4–36.6; O2SAT 94–99; BMI 33.1
--- NOTE | 2023-05-02 07:41 | P.PNANES_ITS ---
[facility] Disclaimer: The information contained in this section may have been updated after the patient was seen, as this information can be updated by other users. Medical History Bilateral lower extremity edema Congenital heart disease Heart murmur History of COVID-19 Incisional pain Surgical History History of open heart surgery Hx of section Hx of wisdom tooth extraction Family History Other Heart disease Social History (Updated 05/02/23 @ 06:36 by Marisabel Rivera RN) Smoking Status: Never smoker alcohol intake: never substance use type: denies use current occupational status: employed Travel in the last 8 weeks: None [facility] Anesthesia Checklist Patient Identification Patient Identification: Verbal (Name & ) Structural Data Admitted From: Home Planned Operative Procedure/s: bilat salpingectomy Consent for Planned Operative Procedure(s) Verified: Yes NPO Status Verified Time NPO: 00:00 Additional verifications Anesthesia Reactions: No Hx Blood Transfusions: No Blood Transfusion Reaction: No Airway Assessment Mallampati Score:: Class I C-Spine Mobility Assessed: Yes TMJ Mobility Assessed: Yes Dentition: Good Dentition Neurological Assessment Level of Consciousness: Awake, Alert and Appropriate Anesthesia Plan Anesthesia Risk discussed: Yes Anesthesia Plan: Verified ASA Class: II Anesthesia Type: General
--- NOTE | 2023-05-02 08:11 | EXP.ANES.I ---
[facility] Anesthesia Record Part I Anesthesia Record I Intake, IV Amount: 1,200 Hydration: Adequate Estimated blood loss (mL): 20 Urine output (mL): 100 Blood Pressure: 144/83 SaO2: 94 Pulse Rate: 102 Airway Patency: Patent Respiratory Rate: 12 Temperature: 97.5 F Patient is:: Awake and Stable Stable to PACU at:: 08:10
--- NOTE | 2023-05-02 08:15 | EXP.OP.NOTE ---
Date of procedure: 05/02/23 Pre-op Diagnosis:: Desire for sterilization Post-op Diagnosis:: Desire for sterilization Procedure performed:: Laparoscopic bilateral salpingectomy Surgeon:: Arnie Rajput MD Mba Intern(s):: Dr. Lee CONTINUOUS PROCESS ROTARY DRUM TANNER:: Brad Rodriguez Anesthesia: GETA Estimated blood loss (mL): 25 Clinical Note:: She is a 32-year-old lady who expressed desire for sterilization. The risks and benefits as well as the irreversibility of bilateral salpingectomy were discussed with the patient prior to surgery. Operative findings:: She had a normal-appearing anteverted uterus. The tubes were seen and followed to their fimbriated ends and appeared normal. The ovaries appeared normal. The deep pelvis was normal. The upper abdomen was normal. The appendix was visualized and appeared normal. Operative note:: She was taken to the operating room where general anesthesia was found be adequate. She was prepped and draped in normal sterile fashion in the semilithotomy position. A weighted speculum was placed in the vagina and the anterior lip of the cervix was grasped with a tenaculum. I then inserted a Dorothy uterine manipulator into the cervical os. The balloon was then insufflated. I changed gloves and injected 10 cc of 0.5% ropivacaine around her umbilicus and made a small incision within the umbilicus. I inserted a Veress needle into the abdominal cavity. The peritoneal cavity was then insufflated with carbon dioxide gas to a pressure of 20 mmHg. I then inserted a 5 millimeter trocar under direct vision. I injected through and through the pubic hairline, made a small incision here and inserted an 8 mm trocar under direct vision. I identified the inferior epigastric artery on the left side, went lateral to these and injected through and through. I then placed a 5 mm trocar here under direct vision. The pelvis and upper abdomen were then inspected and the findings were as previously dictated. I grasped the right tube at the cornua and using harmonic scalpel on coagulation mode I cut through the tube. I then grasped the distal tube and using harmonic scalpel cut along the mesosalpinx. The tube was removed through 8 mm trocar site. This was similarly performed on the patient's left side. I then injected 30 cc of 0.5% ropivacaine into the pelvis. After assuring hemostasis the gas was let out of the abdomen and hemostasis was once again assured. The abdomen was then reinsufflated. The secondary trochars were removed under direct vision. The gas was let out her abdomen. The primary trocar was then removed. The 8 mm trocar site was closed deeply with 2-0 Vicryl suture followed by subcuticular 4-0 Monocryl suture. The 5 mm trocar sites were closed with subcuticular 4-0 Monocryl. Sterile dressings were applied. The patient tolerated the procedure well and was taken to the recovery room in excellent condition. All sponge instrument and needle counts were correct. The estimated blood loss was less than 25 cc. Condition: stable Disposition: PACU Specimens:: Bilateral fallopian tubes Complications:: None
--- NOTE | 2023-05-05 20:30 | EXP.ANES.II ---
[facility] Anesthesia Record Part II Anesthesia Record Part II Discharge Time: 08:40 Destination: Surgical Day Care (OP Surgery) PACU nurse assessment reviewed?: Yes Patient Condition:: Good Anesthesia Complications:: None Swallowing reflex intact?: Yes Airway Patency: Patent Cyanosis?: No Blood Pressure: 125/77 SaO2: 99 Respiratory Rate: 14 Pulse Rate: 89 Temperature: 97.5 F Mental Status: Alert & Oriented Pain level:: 8 Nausea and/or vomitting:: None Intake, IV Amount: 0 Hydration: Adequate
[2023-05-05 20:31] VITALS: BP 125/77; PULSE 89; RESP 14; TEMP 36.4; O2SAT 99
== END 2023-05-02 09:22 | disposition home or self-care (01) ==
PROVIDERS: PCP Family Medicine; Visit Provider Nurse Practitioner Obstetrics & Gynecology
PROC: (CPT 58661; principal; 2023-05-02 07:30)
DX: Z30.2 Encounter for sterilization (principal); N85.4 Malposition of uterus
CPT/HCPCS: 58661; 96374; J2405

== ENCOUNTER 2023-05-18 15:59 | Emergency (ER) | payer OTHER, SELFPAY ==
[2023-05-18 16:10] VITALS: BP 118/74; PULSE 84; RESP 18; TEMP 36.7; O2SAT 100; BMI 32.9
--- NOTE | 2023-05-18 16:21 | EXP.UTC ---
Discharge Plan Disposition Patient Disposition: Home, Self-Care Condition: Good Prescriptions Prescriptions: New ibuprofen [IBU] 800 mg tablet 800 mg PO Q8HP PRN (Reason: Moderate Pain) Qty: 30 0RF promethazine 25 mg tablet 25 mg PO TID PRN (Reason: nausea and vomiting) Qty: 20 0RF No Action semaglutide (weight loss) 0.5 mg/0.5 mL pen injector 0.7 mg SQ WEEKLY Rx Instructions: administer weeks 5 through 8 of therapy alprazolam [Xanax] 1 mg tablet 1 mg PO .Every 8 hours PRN (Reason: anxiety) Qty: 2 0RF Referrals Follow up/Referrals: Oneil Stoddard MD [Primary Care Provider] - See instructions Activity Restrictions/Add. Instructions Additional Instructions/Restrictions: Drink plenty of fluids. Go home and rest. Take the medications as directed. Follow up with your regular doctor. GO TO THE ER FOR ANY WORSENING SYMPTOMS Clinical Impressions Clinical Impression: Headache Instructions Patient Instructions: DI for Headache Discharge ED Provider: Ovidio Gooden [facility] General Stated complaint: headache Mode of Arrival: Ambulatory Source of Information: Patient Limitations: No Limitations Time Seen by Provider: 05/18/23 16:21 Description of Symptoms (Recalled from Triage Doc. by RN): Has had a migraine for 3 days not improving HEENT Symptoms (Recalled from RN notes): Yes Resp Symptoms (Recalled from RN notes): No Skin Symptoms (Recalled from RN notes): No MS Symptoms (Recalled from RN notes): No Functional Status (Recalled from RN notes): n/a History of Present Illness Provider Complaint: She states that she has had a migraine headache for the past 3 days. She denies other complaints. She states that she has a history of migraines. She states that usually ibuprofen 800 mg stops her headaches, but it has not worked this time. She denies any fever/chills. Related Data Home Medications Medication Instructions Recorded Confirmed semaglutide (weight loss) 0.5 0.7 mg SQ WEEKLY . 03/26/23 05/16/23 mg/0.5 mL subcutaneous pen injector Previous Rx's Medication Instructions Recorded alprazolam 1 mg tablet (Xanax) 1 mg PO .Every 8 hours PRN anxiety 05/01/23 #2 tabs ibuprofen 800 mg tablet (IBU) 800 mg PO Q8HP PRN Moderate Pain 05/18/23 #30 tabs promethazine 25 mg tablet 25 mg PO TID PRN nausea and 05/18/23 vomiting #20 tabs Allergies Allergy/AdvReac Type Severity Reaction Status Date / Time No Known Allergies Allergy Verified 05/18/23 16:15 Worker's Comp Is this a Worker's Comp case?: No PFSH PFSH Disclaimer: The information contained in this section may have been updated after the patient was seen, as this information can be updated by other users. Medical History Bilateral lower extremity edema Congenital heart disease Heart murmur History of COVID-19 Incisional pain Surgical History History of bilateral salpingectomy History of open heart surgery Hx of section Hx of wisdom tooth extraction Family History Other Heart disease Social History Smoking Status: Never smoker alcohol intake: never substance use type: denies use current occupational status: employed Travel in the last 8 weeks: None ROS Obtained: Yes All systems reviewed & no additional complaints except as documented Constitutional Constitutional: Denies chills and Denies fever(s) Eyes Eyes: Denies eye discharge ENT Ears, Nose, Mouth, and Throat: Denies dizziness, Denies otalgia and Denies sore throat Cardiovascular Cardiovascular: Denies chest pain Respiratory Respiratory: Denies shortness of breath, Denies chest congestion, Denies cough, Denies stridor and Denies wheezing Gastrointestinal Gastrointestingal: Denies nausea or vomiting Mus
[2023-05-18 17:27] VITALS: BP 118/74; PULSE 84; RESP 18; TEMP 36.7; O2SAT 100
== END 2023-05-18 17:27 | disposition home or self-care (01) ==
PROVIDERS: Emergency Provider Nurse Practitioner Family; PCP Family Medicine
DX: I35.9 Nonrheumatic aortic valve disorder, unspecified; R01.1 Cardiac murmur, unspecified; G44.89 Other headache syndrome
CPT/HCPCS: 96372; 99204; 99212; G0463

== ENCOUNTER 2023-07-13 12:11 | Emergency (ER) | payer OTHER, SELFPAY ==
[2023-07-13 12:15] VITALS: BP 150/85; PULSE 89; RESP 18; TEMP 37; O2SAT 99; BMI 32.9
--- NOTE | 2023-07-13 12:21 | ECG_ITS ---
APPROVED REPORT Exam: Resting ECG HR:83 bpm ECG Measurements Heart Rate 83 AXES NE 152 P 58 QRSd 92 QRS 76 QT 353 T 45 QTc 393 Conclusion SINUS RHYTHM POSSIBLE LEFT ATRIAL ENLARGEMENT [-0.1mV P-WAVE IN V1/V2] BORDERLINE ECG UNCONFIRMED REPORT Electronically signed by : Ruslan Lau MD 07/13/2023 16:52:32
--- NOTE | 2023-07-13 12:35 | XR_ITS ---
PROCEDURE INFORMATION: Exam: XR Chest Exam date and time: 07/13/2023 1:00 PM Age: 32 years old Clinical indication: Other: Chest pressure TECHNIQUE: Imaging protocol: Radiologic exam of the chest. Views: 1 view. COMPARISON: No relevant prior studies available. FINDINGS: Lungs: Unremarkable. No consolidation. Pleural spaces: Unremarkable. No pleural effusion. No pneumothorax. Heart/Mediastinum: Unremarkable. No cardiomegaly. Bones/joints: Unremarkable. IMPRESSION: No acute findings.
--- NOTE | 2023-07-13 12:40 | PC.NURSE ---
XR AT BEDSIDE
[2023-07-13 12:45] LABS: Basophils % 0.3 % (0.1-2.0); Eosinophils # 0.1 K/mm3 (0.0-0.4); Eosinophils % 0.8 % (0.1-12.0); Hematocrit 41.1 % (37.0-47.0); Hemoglobin 14.1 g/dL (12.2-16.2); Lymphocytes # 1.6 K/mm3 (0.7-4.5); Lymphocytes % 20.4 % (10-50); Mean Corpuscular HGB Conc 34.3 g/dL (31.8-35.4); Mean Corpuscular Volume 90.4 fl (81-99); Mean Platelet Volume 9.8 fl (7.4-10.4); Monocytes # 0.4 K/mm3 (0.1-1.0); Monocytes % 4.4 % (1.7-9.3); Neutrophils # 5.9 K/mm3 (1.8-7.8); Neutrophils % 74.1 % (37.0-80.0); Platelet Count 162 K/mm3 (142-424); Red Blood Count 4.54 M/mm3 (4.20-5.40); Red Cell Distribution Width 13.2 % (11.5-17.5)
[2023-07-13 12:46] LABS: Chloride 103 mmol/L (98-107); Potassium 4.3 mmoL/L (3.5-5.1); Sodium 138 mmol/L (136-145)
[2023-07-13 12:48] LABS: Alanine Aminotransferase 18 U/L (12-78); Aspartate Amino Transferase 30 U/L (14-36); Blood Urea Nitrogen 11 mg/dl (7-17); Creatinine Clearance Estimated 130 mL/min (50-200); Estimated Glomerular Filt Rate 83 ml/min (>60); GFR (African American) 101 ML/MIN (>60)
[2023-07-13 12:49] LABS: Albumin Level 4.5 g/dl (3.5-5.0); Albumin/Globulin Ratio 1.5 (1.1-1.8); Alkaline Phosphatase 95 U/L (38-126); Anion Gap 10.3 mEq/L (5-15); Bilirubin,Total 0.9 mg/dl (0.2-1.3); Calcium 8.5 mg/dl (8.4-10.2); Carbon Dioxide 29 mmol/L (22.0-30.0); Glucose 96 mg/dl (74-100); Total Protein,Serum 7.5 g/dl (6.3-8.2)
--- NOTE | 2023-07-13 12:51 | PC.NURSE ---
DR RHODES AT BEDSIDE
--- NOTE | 2023-07-13 12:58 | CT_ITS ---
PROCEDURE INFORMATION: Exam: CTA Chest With Contrast Exam date and time: 07/13/2023 1:14 PM Age: 32 years old Clinical indication: Pain; Chest pressure; Prior surgery; Surgery date: 6+ months; Surgery type: H/o as S/P surgery; Additional info: Chest pain rad to back, h/o as S/P surgery TECHNIQUE: Imaging protocol: Computed tomographic angiography of the chest with contrast. Exam focused on the arteries. 3D rendering (Not supervised by radiologist): MIP and/or 3D reconstructed images were created by the technologist. Radiation optimization: All CT scans at this facility use at least one of these dose optimization techniques: automated exposure control; mA and/or kV adjustment per patient size (includes targeted exams where dose is matched to clinical indication); or iterative reconstruction. Contrast material: ISO 370; Contrast volume: 95 ml; Contrast route: INTRAVENOUS (IV); REPORTING DATA: Count of CT and Cardiac NM exams in prior 12 months: This patient has received 0 known CTs and 0 known cardiac nuclear medicine studies in the 12 months prior to the current study. COMPARISON: CR XR CHEST PORTABLE 07/13/2023 1:00 PM FINDINGS: Pulmonary arteries: There is suboptimal opacification of pulmonary arteries due to contrast bolus timing. Aorta: Ascending aorta measures 3.7 cm in maximum dimensions Lungs: Unremarkable. No consolidation. No masses. Pleural spaces: Unremarkable. No pneumothorax. No pleural effusion. Heart: Unremarkable. No cardiomegaly. No pericardial effusion. Coronary arteries: No evidence of coronary artery calcification Lymph nodes: Unremarkable. No enlarged lymph nodes. Bones/joints: Unremarkable. No acute fracture. Soft tissues: Unremarkable. IMPRESSION: 1. No large or central pulmonary embolus. Evaluation of the peripheral pulmonary arteries is limited. 2. No evidence of acute intrathoracic abnormality 3. Ascending aorta measuring 3.7 cm in maximum dimensions.
--- NOTE | 2023-07-13 13:00 | HMH.EDGENADL ---
Discharge Plan Disposition Patient Disposition: Home, Self-Care Prescriptions Prescriptions: No Action clindamycin HCl 300 mg capsule 300 mg PO Q12H Qty: 10 0RF fluconazole 150 mg tablet 150 mg PO Q3D Qty: 2 0RF Rx Instructions: repeat dose in 72 hours Referrals Follow up/Referrals: Oneil Stoddard MD [Primary Care Provider] - See instructions Jose M Ibrahim MD [Staff Physician] - See instructions Activity Restrictions/Add. Instructions Additional Instructions/Restrictions: No evidence of emergent aortic pathology on the CT scan of your chest. Your symptoms are most likely gastrointestinal in nature most likely GERD or esophagitis. I would take [id number] medications as discussed and lifestyle modifications as discussed and follow-up with a possum trapper or our general surgeon for an EGD if your symptoms persist. Clinical Impressions Clinical Impression: Chest pain, GERD (gastroesophageal reflux disease) Discharge ED Provider: Diego Dougherty General Adult HPI General Chief complaint: Chest Pain Stated complaint: PRESSURE IN CHEST, SHOULDER PAIN SINCE SATURDAY Time Seen by Provider: 07/13/23 12:50 Mode of Arrival: Ambulatory Limitations: No Limitations Description of Symptoms (Recalled from ER Triage Doc. by RN): PT REPORTS WAKING Saturday WITH ACID REFLUX AND BURNING IN MY THROAT TOOK TUMS AND FELT BETTER. REPORTS BURNING AFTER EATING, AND PAIN BETWEEN SHOULDER BLADES, CHEST PRESSURE THIS AM History of Present Illness HPI narrative: Is a 32-year-old female with a history of aortic stenosis status post open aortic repair years ago presents today with chest pain. States that this began Saturday morning woke her up from sleep felt like this was reflux burning in her throat she took Tums and felt better. However the next day she started having pain radiating into her shoulders and some into her back and she was concerned given the fact that she had aortic problems in the past. Denies any exertional symptoms any fevers chills no tearing or ripping sensation. No hematemesis or melena no history of GERD peptic ulcer disease etc. She did eat chili right before this began. Related Data Previous Rx's Medication Instructions Recorded clindamycin HCl 300 mg capsule 300 mg PO Q12H #10 caps 07/05/23 fluconazole 150 mg tablet 150 mg PO Q3D 2 doses #2 tabs 07/05/23 Allergies Allergy/AdvReac Type Severity Reaction Status Date / Time No Known Allergies Allergy Verified 07/02/23 14:19 [facility] Disclaimer: The information contained in this section may have been updated after the patient was seen, as this information can be updated by other users. Medical History Bilateral lower extremity edema Congenital heart disease Heart murmur History of COVID-19 Incisional pain Surgical History History of bilateral salpingectomy History of open heart surgery Hx of section Hx of wisdom tooth extraction Family History Other Heart disease Social History Smoking Status: Never smoker alcohol intake: never substance use type: denies use current occupational status: employed Travel in the last 8 weeks: None ROS Obtained: Yes All systems reviewed & no additional complaints except as documented Physical Exam General General appearance: alert Respiratory Respiratory exam: Present normal lung sounds bilaterally; Absent respiratory distress, wheezes or stridor Cardiovascular Cardiovascular exam: Present regular rate; Absent tachycardia Abdominal Exam Abdominal exam: Present soft; Absent distention, tenderness or guarding Neurological Exam Neurological exam: Present alert and oriented X3 Medical Decision Making Rodrigo Inquiry Pt receiving controlled
[2023-07-13 13:02] LABS: Troponin I < 0.01 ng/ml (0.00-0.034)
--- NOTE | 2023-07-13 13:03 | PC.NURSE ---
RADIOLOGY NOTIFIED OF CT
[2023-07-13 13:08] LABS: Lipase 44 U/L (23-300)
--- NOTE | 2023-07-13 14:17 | PC.NURSE ---
DR RHODES AT BEDSIDE TO UPDATE PT ON POC
[2023-07-13 14:18] VITALS: BP 156/90; PULSE 71; RESP 17; TEMP 37; O2SAT 99
== END 2023-07-13 14:25 | disposition home or self-care (01) ==
PROVIDERS: Emergency Provider Student in an Organized Health Care Education/Training Program; PCP Family Medicine
DX: R07.89 Other chest pain (principal); K21.9 Gastro-esophageal reflux disease without esophagitis; Z86.79 Personal history of other diseases of the circulatory system
CPT/HCPCS: 71045; 71275; 80053; 83690; 84484; 85025; 93005; 96361; 96374; 99285; Q9967

== ENCOUNTER → 2023-07-23 07:53 | Outpatient (CLI) | payer OTHER, SELFPAY ==
--- NOTE | 2023-07-23 07:55 | US_ITS ---
FINAL REPORT CLINICAL HISTORY: ABD PAIN COMPARISON: None FINDINGS: Sonographic images of the right upper quadrant were obtained. The pancreas is partially obscured.The liver has an unremarkable appearance. A small amount of sludge is present in the gallbladder without evidence of stones. There is no evidence of biliary ductal dilatation.The common duct measures 2 mm. Limited images of the right kidney are unremarkable. IMPRESSION: A small amount of sludge is present in the gallbladder without evidence of stones or biliary ductal dilatation. Reviewed, Interpreted and Dictated by Piyush Roach MD Transcribed by Basilia Melendrez Authenticated and [facility]
== END ==
PROVIDERS: PCP Family Medicine; Visit Provider Family Medicine
DX: R10.11 Right upper quadrant pain (principal)
CPT/HCPCS: 76705

== ENCOUNTER 2023-11-03 18:05 | Emergency (ER) | payer OTHER, SELFPAY ==
[2023-11-03 18:10] VITALS: BP 152/77; PULSE 76; RESP 18; TEMP 36.6; O2SAT 99; BMI 33.3
--- NOTE | 2023-11-03 18:10 | ED_ITS ---
Discharge Plan Disposition Patient Disposition: Home, Self-Care Condition: Good Prescriptions Prescriptions: New nystatin 100,000 unit/mL suspension 500,000 unit buccal QID 7 Days Qty: 140 0RF Rx Instructions: swish and spit Referrals Follow up/Referrals: Oneil Stoddard MD [Primary Care Provider] - See instructions Activity Restrictions/Add. Instructions Additional Instructions/Restrictions: Drink plenty of fluids. Take the medications as directed. Follow up with your regular doctor. GO TO THE ER FOR ANY WORSENING SYMPTOMS Clinical Impressions Clinical Impression: Candidiasis of mouth Instructions Patient Instructions: DI for Thrush, Nystatin Discharge ED Provider: Ovidio Gooden [facility] General Stated complaint: poss yeast inf Time Seen by Provider: 11/03/23 18:10 History of Present Illness Provider Complaint: She c/o tongue irritation, white coating on her tongue and a scratchy throat for the past 3 days. Related Data Previous Rx's Medication Instructions Recorded nystatin 100,000 unit/mL oral 500,000 unit (5 mL) buccal QID 7 11/03/23 suspension days #140 mL Allergies Allergy/AdvReac Type Severity Reaction Status Date / Time No Known Allergies Allergy Verified 11/03/23 18:25 [facility] Disclaimer: The information contained in this section may have been updated after the patient was seen, as this information can be updated by other users. Medical History Bilateral lower extremity edema Congenital heart disease Heart murmur History of COVID-19 Incisional pain Surgical History History of bilateral salpingectomy History of open heart surgery Hx of section Hx of wisdom tooth extraction Family History Other Heart disease Social History Smoking Status: Never smoker alcohol intake: never substance use type: denies use current occupational status: employed Travel in the last 8 weeks: None ROS Obtained: Yes All systems reviewed & no additional complaints except as documented Constitutional Constitutional: Denies chills and Denies fever(s) Eyes Eyes: Denies eye discharge ENT Ears, Nose, Mouth, and Throat: Reports as per HPI, Denies dizziness, Denies otalgia and Denies sore throat Cardiovascular Cardiovascular: Denies chest pain Respiratory Respiratory: Denies shortness of breath, Denies chest congestion, Denies cough, Denies stridor and Denies wheezing Gastrointestinal Gastrointestingal: Denies nausea or vomiting Musculoskeletal Musculoskeletal: Reports system reviewed and no additional complaints, except as documented and Denies arthralgias Integumentary/Breasts Skin/Breast: Denies rash Neurologic Neurologic: Denies dizziness and Denies paresthesias Allergic/Immunologic Allergic/Immunologic: Denies wheezing Physical Exam General General appearance: alert and in no apparent distress Head Head exam: atraumatic, normocephalic and normal inspection Eye Eye exam: Present normal appearance, PERRL and EOMI ENT ENT exam: Present normal exam, normal oropharynx, mucous membranes moist, TM's normal bilaterally and normal external ear exam Neck Neck exam: Present normal inspection, full ROM and trachea midline; Absent meningismus or lymphadenopathy Chest Chest inspection: Present normal inspection and symmetric chest wall rise; Absent tenderness Respiratory Respiratory exam: Present normal lung sounds bilaterally; Absent respiratory distress Cardiovascular Cardiovascular exam: Present regular rate and normal rhythm; Absent JVD Abdominal Exam Abdominal exam: Present soft and normal bowel sounds; Absent distention, tenderness or guarding Extremities Exam Extremities exam: Present normal inspection, full ROM and normal capillary refill; Absent calf tenderness Back Exam Back exam: Present normal inspection; Absent tenderness Neurological Exam Neurological exam: Present alert and oriented X3 Psychiatric Psychiatric exam: Present normal affect and normal mood Skin Skin exam: Present warm, dry, intact and normal color Lymphatic Lymphatic Findings: no adenopathy Medical Decision Making Medical Records Medical records reviewed: No I reviewed the patient's medical records. Rodrigo Inquiry Pt receiving controlled substance: No Lab Data Lab results reviewed: Yes I reviewed the patient's lab results.
[2023-11-03 18:48] LABS: UTC Strep Screen (Rapid) Negative (Negative)
[2023-11-03 18:52] VITALS: BP 152/77; PULSE 76; RESP 18; TEMP 36.6; O2SAT 99
== END 2023-11-03 18:54 | disposition home or self-care (01) ==
PROVIDERS: Emergency Provider Nurse Practitioner Family; PCP Family Medicine
DX: B37.0 Candidal stomatitis (principal); R07.0 Pain in throat
CPT/HCPCS: 87880; 99212; 99214; G0463

== ENCOUNTER 2024-01-12 16:44 | Emergency (ER) | payer OTHER, SELFPAY ==
[2024-01-12 17:07] VITALS: BP 147/80; PULSE 82; RESP 19; TEMP 36.8; O2SAT 100; BMI 32.1
[2024-01-12 17:30] LABS: UTC Strep Screen (Rapid) Positive (Negative)
--- NOTE | 2024-01-12 17:36 | EXP.UTC ---
Discharge Plan Disposition Patient Disposition: Home, Self-Care Condition: Good Prescriptions Prescriptions: New amoxicillin 500 mg tablet 500 mg PO BID 10 Days Qty: 19 0RF Rx Instructions: firsst dose given in rust nystatin 100,000 unit/mL suspension 5 ml PO TID 7 Days Qty: 105 0RF Rx Instructions: swish and spit No Action citalopram 10 mg tablet 10 mg PO DAILY Patient Comments: TAKE ONE TABLET BY MOUTH EVERY DAY hydroxyzine HCl 25 mg tablet See Rx Instructions .ROUTE .COMPLEX Patient Comments: TAKE ONE TABLET BY MOUTH FOUR TIMES DAILY NEEDED Rx Instructions: TAKE ONE TABLET BY MOUTH FOUR TIMES DAILY NEEDED Referrals Follow up/Referrals: Oneil Stoddard MD [Primary Care Provider] - See instructions Activity Restrictions/Add. Instructions Additional Instructions/Restrictions: Start antibiotics today be sure to take it as ordered with the full length of time although you should start feeling better in 24-48 hours. Change toothbrush and toothpaste 24-48 hours after starting antibiotics Tylenol or Motrin as needed for fever or pain Encourage fluids, water, Gatorade, Powerade, try cold fluids, popsicles, ice cream will make it feel better You are contagious for 24 hours. Avoid kissing anyone, no eating or drinking after anyone. You are contagious. Follow-up the ER for new or worsening symptoms or no noticeable improvement over the next 24-48 hours. Follow-up with PCP this week. Clinical Impressions Clinical Impression: Strep throat Instructions Patient Instructions: DI for Strep Throat Discharge ED Provider: Any ([facility])Jose Alberto [facility] [place] HPI General Stated complaint: sore throat, ears pain Mode of Arrival: Ambulatory Source of Information: Patient Limitations: No Limitations Time Seen by Provider: 01/12/24 17:36 Description of Symptoms (Recalled from Triage Doc. by RN): Pt's symptoms are sore throat, bilateral ear pain, and CHAPPELL. HEENT Symptoms (Recalled from RN notes): Yes Resp Symptoms (Recalled from RN notes): No Skin Symptoms (Recalled from RN notes): No MS Symptoms (Recalled from RN notes): No Functional Status (Recalled from RN notes): n/a History of Present Illness Provider Complaint: 33 yr old female presents for c/o sore throat, bilateral ear pain, and CHAPPELL. Related Data Home Medications Medication Instructions Recorded Confirmed citalopram 10 mg tablet 10 mg PO DAILY 01/12/24 01/12/24 hydroxyzine HCl 25 mg tablet See Rx Instructions .Route .COMPLEX 01/12/24 01/12/24 Previous Rx's Medication Instructions Recorded amoxicillin 500 mg tablet 500 mg PO BID 10 days #19 tabs 01/12/24 nystatin 100,000 unit/mL oral 5 ml PO TID 7 days #105 mL 01/12/24 suspension Allergies Allergy/AdvReac Type Severity Reaction Status Date / Time No Known Allergies Allergy Verified 01/12/24 17:27 Worker's Comp Is this a Worker's Comp case?: No [facility] Disclaimer: The information contained in this section may have been updated after the patient was seen, as this information can be updated by other users. Medical History , PLANT OPERATOR CONTROL ROOM OPERATOR) History of COVID-19 Incisional pain Bilateral lower extremity edema Heart murmur Congenital heart disease Surgical History , PLANT OPERATOR CONTROL ROOM OPERATOR) History of bilateral salpingectomy Hx of wisdom tooth extraction History of open heart surgery Hx of section Family History , PLANT OPERATOR CONTROL ROOM OPERATOR) Heart disease Social History , PLANT OPERATOR CONTROL ROOM OPERATOR) Smoking Status: Never smoker alcohol intake: never substance use type: denies use current occupational status: employed Travel in the last 8 weeks: None ROS Obtained: Yes All systems reviewed & no additional complaints except as documented Constitutional Constitutional: Reports system reviewed and no additional complaints, except as documented Eyes Eyes: Reports system reviewed and no additional complaints, except as documented ENT Ears, Nose, Mouth, and Throat: Reports system reviewed and no additional complaints, except as documented, Reports as per HPI, Reports otalgia and Reports sore throat Cardiovascular Cardiovascular: Reports system reviewed and no additional complaints, except as documented Respiratory Respiratory: Reports system reviewed and no additional complaints, except as documented Musculoskeletal Musculoskeletal: Reports system reviewed and no additional complaints, except as documented Integumentary/Breasts Skin/Breast: Reports system reviewed and no additional complaints, except as documented Neurologic Neurologic: Reports system reviewed and no additional complaints, except as documented Allergic/Immunologic Allergic/Immunologic: Reports system reviewed and no additional complaints, except as documented Physical Exam General General appearance: alert and in no apparent distress Head Head exam: atraumatic Eye Eye exam: Present normal appearance and PERRL ENT ENT exam: Present mucous membranes moist and TM's normal bilaterally Expanded ENT Exam Teeth numbered Image: 1. Other (white coating) Throat exam: Present tonsillar erythema, tonsillomegaly and tonsillar exudate Respiratory Respiratory exam: Present normal lung sounds bilaterally Cardiovascular Cardiovascular exam: Present regular rate and normal rhythm Neurological Exam Neurological exam: Present alert and oriented X3 Skin Skin exam: Present warm and intact Medical Decision Making Medical Records Medical records reviewed: Yes I reviewed the patient's medical records. Rodrigo Inquiry Pt receiving controlled substance: No Rodrigo was queried for this patient: No Vital Signs: 01/12/24 17:07 Temperature 98.3 F Temperature Source Oral Pulse Rate [Right Radial] 82 Respiratory Rate 19 Blood Pressure [Right Arm] 147/80 H Blood Pressure Mean [Right Arm] 102 Blood Pressure Source [Right Arm] Automatic Cuff Blood Pressure Position [Right Arm] Sitting 02 Sat by Pulse Oximetry 100 Oxygen Delivery Method Room Air Lab Data Lab results reviewed: Yes I reviewed the patient's lab results. Lab Results 01/12/24 17:29: Strep Scn [facility] Positive A
[2024-01-12] MEDS: AMOXICILLIN 500MG CAPSULE 500 MG PO (17:48)
[2024-01-12 18:01] VITALS: BP 147/80; PULSE 82; RESP 19; TEMP 36.8; O2SAT 100
== END 2024-01-12 18:01 | disposition home or self-care (01) ==
PROVIDERS: Emergency Provider Nurse Practitioner Family; PCP Family Medicine
DX: J02.0 Streptococcal pharyngitis (principal); R07.0 Pain in throat; R51.9 Headache, unspecified; H92.03 Otalgia, bilateral
CPT/HCPCS: 87880; 99212; 99214; G0463

== ENCOUNTER 2024-07-07 09:23 | Outpatient (CLI) | payer OTHER, SELFPAY ==
--- NOTE | 2024-07-07 09:26 | CA_ITS ---
APPROVED REPORT EXAM: Comprehensive 2D, Doppler, and color-flow Echocardiogram Head Bookkeeper: Minna Victoria CRT Ht: 5 ft 2 in Wt: 178lbs BSA: 1.82 BP: 140/76 mmHg Indications: AV repair at 11 wks old in 1990,ECHO 05/27/24 BAV, MOD , MOD/SEVERE AI. Wants a second opinion on Ross procedure 2D Dimensions LA Volume 36.60 mL LA Volume Index 19.70 mL/m2 (M/F) 16-34 M-Mode Dimensions RVDd 2.35 cm (0.9-2.6) LA Diam 3.28 cm (1.9-4.0) LVDd 4.74 cm (3.5-5.7) LVDs 2.64 cm (3.5-5.7) IVSd 1.44 cm (0.6-1.1) PWd 0.66 cm (0.6-1.1) EF (Teich) 75.50% FS 44.30% EDV (Teich) 104.40 mL TAPSE 2.06 (<1.7) ESV (Teich) 25.60 mL LV Diastology E Decel Time 180 (160-240 msec) E/A Ratio 1.20 MED A' 12.40 cm/s LAT A' 9.20 cm/s Aortic Valve DAVIS Index 0.54 cm2/m2 AoV Peak Adolfo. 338.0 (50-130 cm/s) AI PHT 392.00 ms AO Peak GR. 45.70 mmHg AO Mean GR. 25.50 (<5 mmHg) AO VTI 71.6 (18-25 cm) DAVIS (VTI) 1.01 (2.5-4.5 cm2) Mitral Valve MV E Max Adolfo. 64.0 (40-130 cm/s) MV A Velocity 53.0 (40-130 cm/s) E/A Ratio 1.20 MV Mean Gr. 25.60 (<2mmHg) MV PHT 53.0 ms Pulmonary Valve PV Peak Velocity 167.0 (50-150 cm/s) Tricuspid Valve TR P. Velocity 230.00 cm/s RAP Estimate 10.00 mmHg RVSP 31.20 mmHg Left Ventricle The left ventricle is normal size. LVEDd=4.7 cm. LVESd=2.7 cm. The left ventricular systolic function is normal. The left ventricular ejection fraction is within the normal range. There is increased LV wall thickness. There is normal LV segmental wall motion. The left ventricular diastolic function is normal. LVEF is 60%. Right Ventricle The right ventricle is normal size. The right ventricular systolic function is normal. Atria The left atrium size is normal. The right atrium size is normal. There is no Doppler evidence of interatrial shunt. Aortic Valve The aortic valve is moderately thickened. The aortic valve is likely bicuspid (anatomic or functional). Moderate aortic stenosis. DAVIS by continuity equation is 1.3 cm2. Mean AV gradient 23 mmHg. Max AV gradient 44 mmHg. Peak velocity 3.3 m/s. Moderate aortic regurgitation. Mitral Valve There is prolapse of the anterior mitral valve leaflet. No evidence of mitral valve stenosis. Mild mitral regurgitation. Tricuspid Valve The tricuspid valve leaflets are thin and pliable. Mild tricuspid regurgitation. RVSP is 20-25 mmHg. Pulmonic Valve The pulmonary valve is normal in structure. Trace pulmonic regurgitation. Great Vessels The aortic root is normal in size. The ascending aorta is not well-visualized. IVC is normal in size and collapses >50% with inspiration. Pericardium There is no pericardial effusion. Other Information Study Quality: Fair Conclusion Normal biventricular size and systolic function. LVEDd=4.7 cm. LVESd=2.7 cm. The aortic valve is moderately thickened. The aortic valve is likely bicuspid (anatomic or functional). Moderate (DAVIS by continuity equation is 1.3 cm2. Mean AV gradient 23 mmHg. Max AV gradient 44 mmHg. Peak velocity 3.3 m/s). Moderate AI. Anterior MV leaflet prolapse. Mild MR. Mild TR. RVSP is 20-25 mmHg. Electronically signed by : Yvette Sloan MD 07/12/2024 02:52:32
--- NOTE | 2024-07-07 10:15 | MR_ITS ---
APPROVED REPORT Supervisor Maintenance And Custodians: CLINICAL INDICATION AV repair during childhood. 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 TECHNIQUE Image Acquisition: Cardiac magnetic resonance (CMR) was performed on Siemens Espree MRI 1.5T scanner. Software platform sequences were performed using the Siemens ImThera Medical MR B19 platform. A set of three-plane, low-resolution, large [id number] localizers were initially acquired. Then axial, coronal, sagittal TrueFISP, as well as axial HASTE images, were obtained. These were followed by gated TrueFISP breathold cinematic sequences obtained in the short axis with 8 mm slices and 2 mm gaps, 2-chamber (vertical long axis), 3-chamber, 4-chamber (horizontal long axis). A bolus of contrast was injected intravenously with first-pass sequences obtained in the short axis and four-chamber planes. After approximately 10 minutes, a TI tilesetter sequence was performed to determine the optimal TI time. Using the optimized TI time, delayed contrast enhancement segmented inversion???recovery TurboFLASH sequences were obtained in the short axis, 2-chamber, 3-chamber, and 4-chamber projections. 2D-velocity phase mapping was performed. Functional parameters were calculated by offline analysis on an independent workstation ([employer] Imaging Platform, [email or web address]). Contrast: ProHance??? (Gadoteridol) FINDINGS MORPHOLOGY AND FUNCTION Left ventricle: The left ventricle is dilated. The indexed left ventricular end-diastolic volume (LVEDVi) is 117 ml/m2 (reference range 57-105 ml/m2 in males, 56-96 ml/m2 in females). Normal left ventricular systolic function is present. There is normal left ventricular wall thickness. There are no regional wall motion abnormalities noted. LVEF is calculated at 60.6% (reference range 57-77%). Right ventricle: The right ventricle is normal in size. The indexed right ventricular end-diastolic volume (RVEDVi) is 90 ml/m2 (reference range 61-121 ml/m2 in males, 48-112 ml/m2 in females). Normal right ventricular systolic function is present. RVEF is calculated at 51.0% (reference range 52-72% in males, 51-71% in females). Atria: The left atrium is normal in size. The maximum indexed left atrial volume is 39 ml/m2 (reference range 26-52 ml/m2 in males, 27-53 ml/m2 in females). The right atrium is normal in size. The maximum indexed right atrial volume is 32 ml/m2 (reference range 18-90 ml/m2). Aorta: The diameter of the aortic annulus is mildly increased, measuring 30 mm (coronal view reference range 21-30 mm in males, 19-27 mm in females). The diameter of the aortic sinus is normal, measuring 37 mm (coronal view reference range 25-42 mm in males, 24-36 mm in females). The diameter of the sinotubular junction is normal, measuring 28 mm (coronal view reference range 18-32 mm in males, 18-28 mm in females). The diameters of the ascending and descending thoracic aorta are normal. Main pulmonary artery: The main pulmonary artery diameter is normal. Pericardium: The pericardial thickness is normal. The pericardial thickness measures 1.4 mm (normal < 4.0 mm). There is no pericardial effusion. VALVES The patient is s/p childhood AV repair. The AV is thickened with restricted leaflet mobility. DAVIS by planimetry method is 1.5 cm2, suggestive of moderate aortic stenosis. Maximum velocity 3.1 m/s. Mean AV gradient is 9 mmHg. Max AV gradient is 37 mmHg (note that transaortic velocities and gradients may be underestimated on CMR). AV forward volume is 126 mL. AV backward volume is 59 mL. % regurgitant fraction is 47%. Findings are suggestive of moderate AI, approaching severe AI status. Mild prolapse of the anterior MV leaflet. Mild mitral regurgitation (MR) is present. Ratio of pulmonary to systemic flow, Qp:Qs ratio = 1.35 (normal < or = 1.2, hemodynamically significant shunt > 1.5), demonstrating no evidence of hemodynamically significant shunt. TISSUE CHARACTERIZATION Resting Perfusion: Normal myocardial blood flow at rest. No evidence of resting hypoperfusion. Myocardial Fibrosis and/or edema: Normal gadolinium kinetics are present. No evidence of late gadolinium enhancement is noted, consistent with absence of myocardial scarring, infarction, or necrosis. T2-weighted imaging demonstrates no evidence of myocardial edema or inflammation. OTHER No other significant findings are noted. However, this exam is focused on the cardiac structure and function. IMPRESSION Dilated LV with normal LV systolic function. LVEDVi= 117 ml/m2 and LVEF= 60.6%. Normal RV size with normal RV systolic function. RVEDVi= 90 ml/m2 and RVEF= 51.0%. No atrial enlargement. s/p childhood AV repair. The AV is thickened with restricted leaflet mobility. DAVIS by planimetry method is 1.5 cm2, suggestive of moderate aortic stenosis. Maximum transaortic velocity 3.1 m/s. Mean AV gradient is 9 mmHg. Max AV gradient is 37 mmHg (note that transaortic velocities and gradients may be underestimated on CMR). AV forward volume is 126 mL. AV backward volume is 59 mL. % regurgitant fraction is 47%. Findings are suggestive of moderate AI, approaching severe AI status. Mild prolapse of the anterior MV leaflet. Mild mitral regurgitation (MR) is present. Mildly dilated aortic annulus. No CMR evidence of myocardial scarring, infarction, or necrosis. No evidence of myocardial edema or inflammation. Perfusion analysis demonstrates normal blood flow at rest with no evidence of resting hypoperfusion. Ratio of pulmonary to systemic flow, Qp:Qs ratio = 1.35 (normal < or = 1.2, hemodynamically significant shunt > 1.5), demonstrating no evidence of hemodynamically significant shunt. COMPARISON None CRITICAL RESULT None COMMUNICATION Per this written report The findings of this cardiac MR were reviewed, reported, and signed by Jono Sloan MD (Hydrotel Operator). Conclusion Electronically signed by : Yvette Sloan MD 07/19/2024 20:39:53
[2024-07-07] MEDS: GADOTERIDOL INJ 20ML SYRINGE 19 ML IV (11:44)
[2024-07-07] MEDS: 0.9 % SODIUM CHLORIDE 50 ML VIAL 20 ML IV (11:44)
[2024-07-07] MEDS: SODIUM CHLORIDE 0.9% 10ML SYR (RAD ONLY) 10 ML IV (11:44)
== END 2024-07-07 23:59 | disposition home or self-care (01) ==
LOC: RT 09:24
PROVIDERS: PCP Family Medicine; Visit Provider Internal Medicine
DX: I35.9 Nonrheumatic aortic valve disorder, unspecified (principal); Z98.890 Other specified postprocedural states
CPT/HCPCS: 75561; 93306; A9576

== ENCOUNTER 2025-02-15 12:56 | Outpatient (RCR) | payer OTHER, SELFPAY | END 2025-03-05 14:00 | disposition home or self-care (01) | LOC: CR 12:56 | PROVIDERS: Visit Provider Surgery | DX: Z48.812 Encounter for surgical aftercare following surgery on the circulatory system (principal); Z98.890 Other specified postprocedural states; Z95.1 Presence of aortocoronary bypass graft | CPT/HCPCS: 93798 ==

== ENCOUNTER 2025-06-24 08:07 | Outpatient (CLI) | payer OTHER, SELFPAY ==
--- OUTSIDE RECORDS SUMMARY | 2024-01-08 11:15 | XMS_ITS ---
[facility] [address] [place] [id number] Care Team Providers Care Motor Equipment Captain Name Role Phone ArlynJovanaOneil Primary Care Provider Mar Mullins Unavailable [phone] Allergies No Known Allergies REASON FOR VISIT anxiety Medications Medication SIG (Take, Route, Frequency, Duration) Notes Start Date End Date Status Omeprazole 20 MG 1 capsule 30 minutes before morning meal Orally Once a day; Duration: 30 day(s) Not-Taking Tirzepatide 2.5 MG/0.5ML as directed Subcutaneous Active Ciclopirox 8 % 1 application Externally Once a day 03/13/2023 Not-Taking hydrOXYzine HCl 25 MG 1 tablet Orally fo ur times a day as needed 01/08/2024 Active Contrave 8-90 MG 1 tablet in the am x 7 days, then 1 BID x 7 days, then 1 in the am and 2 in the pm x 7 days then 2 BID Orally Once a day 07/30/2023 Not-Taking Hyoscyamine Sulfate 0.125 MG 1 tablet as needed Orally every 4 hrs 07/15/2023 Not-Taking Citalopram Hydrobromide 10 MG 1 tablet Orally Once a day 01/08/2024 Active Cyclobenzaprine HCl 5 MG 1 tablet Orally every 8 hours as needed 07/15/2023 Not-Taking Problems Problem Type SNOMED Code ICD Code Onset Dates Problem Status W/U Status Risk Notes Problem Anxiety (30266503) Anxiety (F41.9) Active confirmed Vital Signs Blood pressure systolic 120 mm Hg 01/08/20 24 Blood pressure diastolic 70 mm Hg 024 Heart Rate 75 /min 01/08/2024 Height 62 in 01/08/2024 Weight 180 lbs 01/08/2024 BMI 32.92 kg/m2 01/08/2024 Encounters Encounter Location Date Provider Diagnosis [facility] [address] [place] [id number] 01/08/2024 Mar Mullins Anxiety F41.9 Assessments Encounter Date Diagnosis (ICD Code) Assessment Notes Treatment Notes Treatment Clinical Notes Section Notes 01/08/2024 Anxiety (ICD-10 - F41.9) Patient used to take citalopram and hydroxyzine. Will start back on this and see how she does. Will call in 2 weeks with progress. Plan Of Treatment Medication Medication Name Sig Start Date Stop Date Notes hydrOXYzine HCl 25 MG 1 tablet Orally fo ur times a day as needed 01/08/2024 Citalopram Hydrobromide 10 MG 1 tablet Orally Once a day 0 01/08/2024 Treatment Notes Assessment Notes Anxiety Patient used to take citalopram and hydroxyzine. Will start back on this and see how she does. Will call in 2 weeks with progress. Next Appt Details Follow Up: 2 Weeks via phone , Reason: Progress Notes * LUANNMichel VELAZCOJordanB:1990 (34 yo F)Acc No.[id number]:01/08/2024 Progress Notes Patient: Елена PARKER Provider: ANGELA Nuñez :1990 A ge:33 Y S ex:Female Date:01/08/2024 Address:[address] [place] [address], [id number] Pcp:Oneil Stoddard Subjective: * Chief Complaints: * 1 . Anxiety. * HPI: P sychology: Pt is here today due to anxiety. Pt sts she had an echo last month and saw Cardiology about the results, and she was informed she will need open heart surgery within the next 5 years. Pt sts she did have aortic stenosis when she was born. Pt would like to discuss this and potentially get something to help calm her nerves. * ROS: D ERMATOLOGY: no R ruperto. n o H german. G ASTROENTEROLOGY: no N ausea. n o V omiting. n o D iarrhea.? U ROLOGY: no D ifficulty urinating. n o B lood in urine. * Medical History: O pen heart surgery at 11 weeks old aortic valve wasn't opening, recurrent UTI. * Surgical History: A ortic Valve Repair 1989. * Hospitalization/Major Diagno stic Procedure: K idney Infection- [facility] ER 01/2013, Fluids, Dehydrated- [facility] 2019, Mastitis- [facility] ER 01/19/2020. * Family History: F ather: alive 52 yrs. M other: alive 48 yrs. 2 brother(s) . 1 daughter(s) . . * Social History: C URRENT TOBACCO USE S moking Status: Patient does NOT smoke. H ome smoke detector use: yes. Marital Status: Single. Past smoking status: no. Alcohol: Yes, Type: , Frequency: ,Years: , Determination: on occasion. * Medications: T aking Tirzepatide 2.5 MG/0.5ML Solution Pen-injector as directed Subcutaneous , Not-Taking Omeprazole 20 MG Capsule Delayed Release 1 capsule 30 minutes before morning meal Orally Once a day , Not-Taking Hyoscyamine Sulfate 0.125 MG Tablet 1 tablet as needed Orally every 4 hrs , Not-Taking Cyclobenzaprine HCl 5 MG Tablet 1 tablet Orally every 8 hours as needed , Not-Taking Contrave 8-90 MG Tablet Extended Release 12 Hour 1 tablet in the am x 7 days, then 1 BID x 7 days, then 1 in the am and 2 in the pm x 7 days then 2 BID Orally Once a day , Not-Taking Ciclopirox 8 % Solution 1 application Externally Once a day , Medication List reviewed and reconciled with the patient * Allergies: N .K.D.A. Objective: * Vitals: W t:180, Temp:97.9, BP:120/70, HR:75, Nurse:rosanna, Ht: 62, BMI:32.92. * Examination: P sychology: General Appearance: N AD. G rooming : a dequate.?Eye contact : n ormal. M ood : anxious. H eart: R SR. L ungs: c lear to auscultation. N eurologic Exam: I ntact, gait normal. Assessment: * Assessment: 1. A nxiety - F41.9 (Primary) Plan: * Treatment: * Follow Up: 2 Weeks via phone * Images: Billing Information: * Visit Code: 43884 Office Visit, Est Pt., Level 3. * Procedure Codes: * Electronic signature of ANGELA Blackwell on 06/24/2025 at 08:12 AM EDT Sign off status: Pending * Provider: ANGELA Nuñez Date: 0 01/08/2024 Generated for Carleen green/Lynda/eTransmitting on: 08:12 AM EDT History and Physical Notes * Examination Category Sub-Category Detail Notes Category Not es Psychology Heart: RSR Lungs: clear to auscultatio n General Appearance: NAD Neurologic Exam: Intact, gait normal Grooming : adequate Eye contact : normal Mood : anxious
--- OUTSIDE RECORDS SUMMARY | 2024-05-15 12:15 | XMS_ITS ---
Author Organization [facility] Address [address] [facility] [address] [place] [id number] Care Team Providers Care Tie Carrier Name Role Phone Oneil Stoddard Primary Care Provider Mar Mullins Unavailable [phone] REASON FOR VISIT poison cari Medications Medication SIG (Take, Route, Frequency, Duration) Notes Start Date End Date Status Medrol 4 MG as directed orally d aily; Duration: 6 days 05/15/2024 Active Triamcinolone Acetonide 0.1 % 1 application Externally Three times a day 05/15/2024 Active hydrOXYzine HCl 25 MG 1 tablet Orally fo ur times a day as needed 01/08/2024 Active Vital Signs Blood pressure systolic 120 mm Hg 05/15/20 24 Blood pressure diastolic 60 mm Hg 024 Heart Rate 58 /min 05/15/2024 Height 62 in 05/15/2024 Weight 178 lbs 05/15/2024 BMI 32.55 kg/m2 05/15/2024 Encounters Encounter Location Date Provider Diagnosis [facility] [address] [place] [id number] 05/15/2024 Mar Mullins Poison cari L23.7 Assessments Encounter Date Diagnosis (ICD Code) Assessment Notes Treatment Notes Treatment Clinical Notes Section Notes 05/15/2024 Poison cari (ICD-10 - L23.7) Plan Of Treatment Medication Medication Name Sig Start Date Stop Date Notes Medrol 4 MG as directed orally d aily; Duration: 6 days 05/15/2024 Triamcinolone Acetonide 0.1 % 1 applicat ion Externally Three times a day 05/15/2024 Next Appt Details Follow Up: prn, Reason: Progress Notes * Aleah JUAREZB:1990 (34 yo F)Acc No.[id number]:05/15/2024 Progress Notes Patient: Елена PARKER Provider: ANGELA Nuñez :1990 A ge:33 Y S ex:Female Date:05/15/2024 Address:[address] , [place], [id number] Pcp:Oneil Stoddard Subjective: * Chief Complaints: * 1 . Poison cari. * HPI: D ermatology: 33 year old female presents with c/o rash P t presents today for poison cari on her left and right forearms. Pt sts that it has spread up her left arm. Pt sts that her legs are now itching as well. Pt sts she would like to get a shot for it. Pt sts that it is spreading and she has two kids at home so she does not want to give it to them. * ROS: R ESPIRATORY: no S hortness of breath. n o C ough. ? C ARDIOLOGY: no C hest pain. n o S hortness of breath. ? G ASTROENTEROLOGY: no V omiting. n o A bdominal pain. n o D iarrhea. * Medical History: O pen heart surgery at 11 weeks old aortic valve wasn't opening, recurrent UTI. * Surgical History: A ortic Valve Repair 1989. * Hospitalization/Major Diagno stic Procedure: K idney Infection- [facility] ER 01/2013, Fluids, Dehydrated- [facility] 2019, Mastitis- [facility] 01/19/2020. * Family History: F [...] Determination: on occasion. * Medications: T aking hydrOXYzine HCl 25 MG Tablet 1 tablet Orally four times a day as needed , Discontinued Tirzepatide 2.5 MG/0.5ML Solution Pen-injector as directed Subcutaneous , Discontinued Citalopram Hydrobromide 10 MG Tablet 1 tablet Orally Once a day , Medication List reviewed and reconciled with the patient Objective: * Vitals: W t:178, Temp:97.4, BP:120/60, HR:58, Nurse:MMAmaya, Ht: 62, BMI:32.55. * Examination: G eneral Examination: General Appearance: N AD. C hest: n ormal shape and expansion. H eart: R SR. L ungs: c lear to auscultation. S kin: erythematous linear rash on the arms, pruritic. Assessment: * Assessment: 1. P tanesha alcala - L23.7 (Primary) Plan: * Treatment: * Follow Up: p rn * Images: Billing Information: * Visit Code: 79555 Office Visit, Est Pt., Level 3. * Procedure Codes: * Electronic signature of ANGELA Blackwell on 06/24/2025 at 08:10 AM EDT Sign off status: Pending * Provider: ANGELA Nuñez Date: 0 05/15/2024 Generated for Carleen green/Lynda/eTransmitting on: 1 08:10 AM EDT History and Physical Notes * HPI (History of Present Illness) Category Sub-Category Detail Notes Category Not es Dermatology rash Pt presents to y for poison cari on her left and right forearms. Pt sts that it has spread up her left arm. Pt sts that her legs are now itching as well. Pt sts she would like to get a shot for it. Pt sts that it is spreading and she has two kids at home so she does not want to give it to them Examination Category Sub-Category Detail Notes Category Not es General Examination Heart: RSR Lungs: clear to auscultatio n General Appearance: NAD Skin: erythematous linear rash on the arms, pruritic Chest: normal shape and exp ansion
--- OUTSIDE RECORDS SUMMARY | 2024-12-05 06:30 | XMS_ITS ---
Author Organization [place] Address [address] [facility] [address] [place] [id number] Care Team Providers Care Tannery Gummer Name Role Phone Oneil Stoddard Primary Care Provider Allergies No Known Allergies REASON FOR VISIT wanting anxiety meds due to having open heart surgery Medications Medication SIG (Take, Route, Fr equency, Duration) Notes Start Date End Date Status hydrOXYzine HCl 25 MG 1 tablet as needed Orally Three times a day 12/05/2024 Active Vital Signs Blood pressure systolic 126 mm Hg 12/06/19 25 Blood pressure diastolic 80 mm Hg 025 Heart Rate 74 /min 12/05/2024 Height 62 in 12/05/2024 Weight 179.8 lbs 12/05/2024 BMI 32.88 kg/m2 12/05/2024 Encounters Encounter Location Date Provider Diagnosis [place] [address] [facility] [address] [place] [id number] 12/05/2024 Oneil Stoddard Adjustment insomnia F51.02 Assessments Encounter Date Diagnosis (ICD Code) Assessment Notes Treatment Notes Treatment Clinical Notes Section Notes 12/05/2024 Adjustment insomnia (ICD-10 - F51.02) Plan Of Treatment Medication Medication Name Sig Start Date Stop Date Notes hydrOXYzine HCl 25 MG 1 tablet as needed Orally Three times a day 12/05/2024 Next Appt Details Follow Up: via phone to repo rt progress, Reason: Progress Notes * Aleah JUAREZB:1990 (34 yo F)Acc No.[id number]:12/05/2024 Progress Notes Patient: Елена PARKER Provider: Wisam Stoddard M.D. :1990 A ge:34 Y S ex:Female Date:12/05/2024 Address:[address], [id number] Subjective: * Chief Complaints: * 1 . Wanting anxiety meds due to having open heart surgery. * HPI: P sychology: 34 year old female presents with c/o Anxiety P t complains of having anxiety and not being able to sleep due to scheduled open heart surgery on 12/14. Pt states she does have an rx for Citalopram but has not been taking it. Pt also rx'd Hydroxyzine but does not have the prescription anymore. * ROS: D ERMATOLOGY: no R ruperto. n o H german. G ASTROENTEROLOGY: no N ausea. n o V omiting. U ROLOGY: no D ifficulty urinating. n o B lood in urine. * Medical History: O pen heart surgery at 11 weeks old, aortic valve, recurrent UTI. * Surgical History: A ortic Valve Repair 1989. * Hospitalization/Major Diagno stic Procedure: K idney Infection- [facility] ER 01/2013, Fluids, Dehydrated- H 2019, Mastitis- [facility] ER 01/19/2020. * Family History: F ather: alive 52 yrs. M other: alive 48 yrs. 2 brother(s) . 1 daughter(s) . . * Social History: C URRENT TOBACCO USE S moking Status: Patient does NOT smoke. H ome smoke detector use: yes. Marital Status: Single. Past smoking status: no. Alcohol: Yes, Type: , Frequency: ,Years: , Determination: on occasion. * Medications: D iscontinued Citalopram Hydrobromide 10 MG Tablet 1 tablet Orally Once a day , Discontinued hydrOXYzine HCl 25 MG Tablet 1 tablet Orally four times a day as needed , Discontinued Medrol 4 MG Tablet Therapy Pack as directed orally daily , Discontinued Triamcinolone Acetonide 0.1 % Cream 1 application Externally Three times a day , Discontinued dexAMETHasone 4 MG Tablet 1 tablet Orally Two times a day , Medication List reviewed and reconciled with the patient * Allergies: N .K.D.A. Objective: * Vitals: W t:179.8, Temp:97.6, BP:126/80, HR:74, Nurse:izzy, Ht: 62, BMI:32.88. * Examination: P sychology: General Appearance: N AD. G rooming : a dequate.?Eye contact : jyothi lion. M ood : hector russell. Assessment: * Assessment: 1. A djustment insomnia - F51.02 (Primary) Plan: * Treatment: * Procedure Codes: 3 074F SYST BP LT 130 MM HG, 3079F DIAST BP 80-89 MM HG * Follow Up: v ia phone to report progress * Images: Billing Information: * Visit Code: 88593 Office Visit, Est Pt., Level 3. * Procedure Codes: 3074F SYST BP LT 130 MM HG. 3079F DIAST BP 80-89 MM HG. * Electronic signature of Edyta Stoddard MD on 06/24/2025 at 08:11 AM EDT Sign off status: Pending * Provider: Wisam Stoddard M.D. Date: 0 12/05/2024 Generated for Carleen green/Lynda/Kayleensmitting on: 1 08:11 AM EDT History and Physical Notes * HPI (History of Present Illness) Category Sub-Category Detail Notes Category Not es Psychology Anxiety Pt complains of having anxiety and not being able to sleep due to scheduled open heart surgery on 12/14. Pt states she does have an rx for Citalopram but has not been taking it. Pt also rx'd Hydroxyzine but does not have the prescription anymore Examination Category Sub-Category Detail Notes Category Not es Psychology General Appearance: NAD Grooming : adequate Eye contact : normal Mood : pleasant
--- OUTSIDE RECORDS SUMMARY | 2025-06-01 11:45 | XMS_ITS ---
Author Organization [place] Address [address] [facility] [address] [place] [id number] Care Team Providers Care Atlassian Administrator Name Role Phone Jovana Stoddardian Primary Care Provider [phone] Roscoe Huntley Unavailable [phone] Allergies No Known Allergies REASON FOR VISIT Sharp Pain in RUQ when Bending Forward Medications Medication SIG (Take, Route, Frequency, Duration) Notes Start Date End Date Status Naproxen 250 MG 1 tablet with food o r milk as needed Orally every 12 hrs Active hydrOXYzine HCl 25 mg take 1 tablet oral ly 3 times a day, PRN; Duration: 10 days Not-Taking Metoprolol Succinate ER 50 MG 1 tablet Orally Once a day Active Vital Signs Blood pressure systolic 112 mm Hg 06/01/20 25 Blood pressure diastolic 68 mm Hg 025 Heart Rate 68 /min 06/01/2025 Height 62 in 06/01/2025 Weight 187.6 lbs 06/01/2025 BMI 34.31 kg/m2 06/01/2025 Encounters Encounter Location Date Provider Diagnosis [place] [address] [facility] [address] [place] [id number] 06/01/2025 Roscoe Huntley RUQ abdominal pain R10.11 Assessments Encounter Date Diagnosis (ICD Code) Assessment Notes Treatment Notes Treatment Clinical Notes Section Notes 06/01/2025 RUQ abdominal pain (ICD-10 - R10.11) Plan Of Treatment Pending Test Test Name Order Date Ultrasound : Abdomen limited 06/01/2025 Next Appt Details Follow Up: prn, Reason: Progress Notes * Janel JUAREZ:1990 (34 yo F)Acc No.[id number]:06/01/2025 Progress Notes Patient: Елена PARKER Provider: Roscoe Huntley M.D. :1990 A ge:34 Y S ex:Female Date:06/01/2025 Address:[address] [place], [place] [address], [id number] Pcp:Oneil Stoddard Subjective: * Chief Complaints: * 1 . Sharp Pain in RUQ when Bending Forward. * HPI: G astroenterology: She presents with complaints of sharp, stabbing, right anterior subcostal pain for the past 5 or 6 days. It only occurs when she is bending forward and resolves with standing back up. No associated nausea or vomiting. No relation to food. No change in bowel habits. No urinary complaints. No shortness of breath or pleuritic pain. * Medical History: O pen heart surgery at 11 weeks old, aortic valve, recurrent UTI. * Surgical History: A ortic Valve Repair 1989, AVR and aortic aneurysm repair 12/2024. * Hospitalization/Major Diagno stic Procedure: K idney Infection- [facility] ER 01/2013, Fluids, Dehydrated- H 2019, Mastitis- [facility] ER 01/19/2020. * Family History: F [...] Determination: on occasion. * Medications: T aking Naproxen 250 MG Tablet 1 tablet with food or milk as needed Orally every 12 hrs , Taking Metoprolol Succinate ER 50 MG Tablet Extended Release 24 Hour 1 tablet Orally Once a day , Not-Taking hydrOXYzine HCl 25 mg Tablet take 1 tablet orally 3 times a day, PRN * Allergies: N .K.D.A. Objective: * Vitals: W t: 187.6, Temp: 98.0, BP: 112/68, HR: 68, Nurse: SF, Ht: 62, BMI:34.31. * Examination: G eneral Examination: General Appearance: N AD. H eart: R SR. L ungs:?clear to auscultation. A bdomen: s oft, not distended,bowel sounds present. Mild right subcostal tenderness. No masses. Assessment: * Assessment: 1. R UQ abdominal pain - R10.11 (Primary) Plan: * Treatment: * Procedure Codes: 1 036F TOBACCO NON-USER, 3074F SYST BP LT 130 MM HG, 3078F DIAST BP < 80 MM HG * Follow Up: p rn * Images: Billing Information: * Visit Code: 76343 Office Visit, Est Pt., Level 3. * Procedure Codes: 1036F TOBACCO NON-USER. 3074F SYST BP LT 130 MM HG. 3078F DIAST BP < 80 MM HG. * Electronic signature of Roscoe Huntley MD on 06/24/2025 at 08:11 AM EDT Sign off status: Pending * Provider: Roscoe Huntley M.D. Date: 0 06/01/2025 Generated for Carleen green/Lynda/eTransmitting on: 1 08:11 AM EDT History and Physical Notes * Examination Category Sub-Category Detail Notes Category Not es General Examination Heart: RSR Lungs: clear to auscultatio n Abdomen: soft, not distended, bowel sounds present. Mild right subcostal tenderness. No masses General Appearance: NAD
--- NOTE | 2025-06-24 08:10 | US_ITS ---
FINAL REPORT TECHNIQUE: Sonographic images of the right upper quadrant were obtained. CLINICAL HISTORY: RUQ ABD PAIN FINDINGS: PANCREAS: Tail obscured, head normal.. LIVER: Homogeneous. No focal hepatic lesion. No intrahepatic biliary ductal dilatation. Portal vein is patent. GALLBLADDER: No gallstones. No gallbladder wall thickening or pericholecystic fluid. COMMON DUCT: 4 mm. Normal for age. RIGHT KIDNEY: The right kidney measures 10.5 cm. There is no hydronephrosis, mass, or stone. FREE FLUID: None. IMPRESSION: Unremarkable ultrasound of the right upper quadrant. Reviewed, Interpreted and Dictated by Kelsi Hamm MD Transcribed by Bonita Loera Authenticated and . [facility]
--- OUTSIDE RECORDS SUMMARY | 2025-06-24 08:11 | XMS_ITS | Clinical Summary ---
Author Organization [facility] Address [address] [place] [address] Care Team Providers Care Credit Controller Name Role Phone Unavailable Primary Care Provider Unavailabl e Immunizations Immunization Administration Dates Next Due HPV, Quadrivalent 05/19/2014 Family History Medical History Relation Name Comments Cardiac disorder Father Cardiac disorder Mother Relation Name Status Comments Father Mother Social History Tobacco Use Types Packs/Day Years Used Date Smoking Tobacco: Never Comments Unknown Sex and Gender Information Value Date Recorded Sex Assigned at Not on file Legal Sex Female 7:58 PM EDT Gender Identity Not on file Sexual Orientation Not on file Last Filed Vital Signs Vital Sign Reading Time Taken Comments Blood Pressure 124/72 04/20/2019 4:03 PM EDT Pulse 74 04/20/2019 4:03 PM EDT Temperature - - Respiratory Rate - - Oxygen Saturation - - Inhaled Oxygen Concentration - - Weight 78.8 kg (173 lb 11.6 oz) 04/20/2019 4:03 PM EDT Height 158.8 cm (5' 2.5 ) 04/20/2019 4:03 PM EDT Body Mass Index 31.27 04/20/2019 4:03 PM EDT Plan of Treatment Not on file
--- OUTSIDE RECORDS SUMMARY | 2025-06-24 08:12 | XMS_ITS | Clinical Summary ---
Author Organization [facility] Address [address] [place] [id number] Care Team Providers Care Process Lead Name Role Phone Oneil Stoddard MD Primary Care Provider [phone] Allergies No known active allergies Medications aspirin 81 MG chewable tablet Chew 1 tablet Daily. 12/19/2024 Active colchicine 0.6 MG tablet Take 1 tablet by mouth Daily. 12/19/2024 Active naproxen (NAPROSYN) 250 MG tablet Take 1 tablet by mouth 2 (Two) Times a Day With Meals. 12/21/2024 Active metoprolol tartrate (LOPRESSOR) 50 MG tablet Take 1 tablet by mouth 2 (Two) Times a Day. 180 tablet 3 01/25/2025 Active hydrOXYzine (ATARAX) 25 MG tablet Take 1 tablet by mouth As Needed. 02/04/2025 Active Active Problems Problem Noted Date Diagnosed Date Palpitations 03/10/2025 Bicuspid aortic valve 01/08/2024 Nonrheumatic aortic valve insufficiency 12/07/19 23 Family history of congenital heart defect 2018 Obesity 05/25/2016 Aortic valve disease 05/25/2016 Resolved Problems Problem Noted Date Diagnosed Date Resolved Date 07/23/2019 12/06/2022 Family History Medical History Relation Name Comments No Known Problems Brother 1 No Known Problems Brother 2 Heart attack Father Tushar Calvillo stent placement Heart disease Father Tushar Calvillo CABG -2019 Heart disease Mother Other Mother mitral valve re pair Relation Name Status Comments Brother 1 Alive Brother 2 Alive Father Tushar Calvillo Alive Mother Alive repair microval ve 2001 Social History Tobacco Use Types Packs/Day Years Used Date Smoking Tobacco: Never Passive Smoke Exposure: Never Smokeless Tobacco: Never Tobacco Cessation:Counseling Given: No Alcohol Use Standard Drinks/Week Comments Not Currently 4 (1 standard drink = 0.6 oz pur e alcohol) social Chinle Depression Scale Answer Date Recorded Chinle Depression Scale Total 2 11/08/2019 The thought of harming myself has occurred to me . Unrecognized value 11/08/2019 Comments No Sex and Gender Information Value Date Recorded Sex Assigned at Female 01/05/2025 9:05 AM EDT Legal Sex Female 10:28 AM EDT Gender Identity Not on file Sexual Orientation Straight 01/05/2025 9: 05 AM EDT Last Filed Vital Signs Vital Sign Reading Time Taken Comments Blood Pressure 110/58 03/10/2025 10:47 AM EDT Pulse 57 03/10/2025 10:47 AM EDT Temperature 36.9 C (98.4 F) 11/10/2019 7:00 AM EST Respiratory Rate 16 11/10/2019 7:00 AM EST Oxygen Saturation 98% 03/10/2025 10:47 AM EDT Inhaled Oxygen Concentration - - Weight 81.7 kg (180 lb 3.2 oz) 03/10/2025 10:47 AM EDT Height 157.5 cm (5' 2 ) 03/10/2025 10:47 AM EDT Body Mass Index 32.96 03/10/2025 10:47 AM EDT Plan of Treatment Upcoming Encounters Date Type Department Care Team (Late st Contact Info) Description 10/13/2025 1:45 PM EST Office Visit [facility] [address] [place] [id number] Kristal Roach MD [address] [facility] [address] [place] [address] Health Maintenance Due Date Last Done Comments Annual Gynecologic Pelvic an d Breast Exam 1990 PAP SMEAR 2011 ANNUAL PHYSICAL 03/25/2019 HEPATITIS C SCREENING 03/25/2019 INFLUENZA VACCINE 04/09/2025 TDAP/TD VACCINES (4 - Td or Tdap) 09/15/2029 09/15/2019, 03/20/2016, 05/01/2013 Pneumococcal Vaccine 0-49 Aged Out No longer eligible based on patient's age to complete this topic Insurance [employer] Advance Directives * CPR (Attempt to Resuscitate) (Latest Code Status on File) Date Activated Date Inactivated Comments 11/08/2019 9:01 AM 11/10/2019 2:58 PM Question Answer Comments Code Status (Patient has no pulse and is not breathing): CPR (Attempt to Resuscitate) Medical Interventions (Patie nt has pulse or is breathing): Full * CPR (Attempt to Resuscitate) Date Activated Date Inactivated Comments 11/07/2019 10:26 PM 11/08/2019 9:01 AM Question Answer Comments Code Status (Patient has no pulse and is not breathing): CPR (Attempt to Resuscitate) Medical Interventions (Patie nt has pulse or is breathing): Full Care Teams Process Lead Relationship Specialty Start Date End Date Oniel Stoddard MD [address] [facility] [address] [place] [address] PCP - General Family Medicine 04/19/16
--- OUTSIDE RECORDS SUMMARY | 2025-06-24 08:12 | XMS_ITS | Clinical Summary ---
Author Organization [facility] Address [address] [place] [address] Care Team Providers Care Nylon Winder Name Role Phone Oneil Stoddard MD Primary Care Provider [phone] Allergies No known active allergies Medications hydrOXYzine (ATARAX) 25 mg tablet Take 25 mg by mouth 3 times daily as needed. 12/05/2024 Active aspirin 81 mg tablet Take 1 Tablet (81 mg) by mouth daily. 30 Tablet 12/18/2024 12:01 PM EDT 12/19/2024 Active atorvastatin (LIPITOR) 10 mg Tablet Take 1 Tablet by mouth nightly at bedtime. 30 Tablet 12/18/2024 12:01 PM EDT 12/18/2024 Active colchicine 0.6 mg tablet Take 1 Tablet (0.6 mg) by mouth daily. 30 Tablet 12/18/2024 12:01 PM EDT 12/19/2024 Active methocarbamoL (ROBAXIN) 500 mg tablet Take 1 Tablet (500 mg) by mouth every 6 hours as needed. 60 Tablet 12/18/2024 12:01 PM EDT 12/18/2024 Active metoprolol tartrate (LOPRESSOR) 25 mg tablet Take 1 Tablet (25 mg) by mouth 2 times daily. 60 Tablet 12/19/2024 Active naproxen (NAPROSYN) 250 mg tablet Take 1 Tablet (250 mg) by mouth 2 times daily. 60 Tablet 5 12/21/2024 Active Active Problems Problem Noted Date Diagnosed Date Aortic insufficiency 12/14/2024 Aortic stenosis 12/14/2024 Aortic valve insufficiency, etiology of cardiac valve disease unspecified 10/06/2024 Aortic valve stenosis, etiol ogy of cardiac valve disease unspecified 10/06/2024 Central retinal vein occlusion 10/06/2024 Family History Medical History Relation Name Comments Coronary Artery Disease Father sten ts Heart Attack Father Heart Surgery Father CABGx3 Heart Surgery Mother MVr Anesthesia Complications Neg Hx Relation Name Status Comments Father Alive Mother Alive Social History Tobacco Use Types Packs/Day Years Used Date Smoking Tobacco: Never Smokeless Tobacco: Never Tobacco Cessation:Counseling Given: Not Answered Comments:I dont smoke Alcohol Use Standard Drinks/Week Comments Yes 0 (1 standard drink = 0.6 oz pur e alcohol) Social drinker only when out [facility] Utilities Answer Date Recorded In the past 12 months has th e electric, gas, oil, or water company threatened to shut off services in your home? No 12/16/2024 Humiliation, Afraid, Rape, and Kick questionnair e Answer Date Recorded Within the last year, have y ou been afraid of your partner or ex-partner? No 12/16/2024 Within the last year, have y ou been humiliated or emotionally abused in other ways by your partner or ex-partner? No Within the last year, have y ou been kicked, hit, slapped, or otherwise physically hurt by your partner or ex-partner? No 12/16/2024 Within the last year, have y ou been raped or forced to have any kind of sexual activity by your partner or ex-partner? No 12/16/2024 Hunger Vital Sign Answer Date Recorded Within the past 12 months, y ou worried that your food would run out before you got the money to buy more. Never true 12/17/19 25 Within the past 12 months, t he food you bought just didn't last and you didn't have money to get more. Never true 12/16/2024 PRAPARE - Transportation Answer Date Re corded In the past 12 months, has l ack of transportation kept you from medical appointments or from getting medications? No 05/2025 In the past 12 months, has l ack of transportation kept you from meetings, work, or from getting things needed for daily living? No 12/16/2024 Housing Stability Vital Sign Answer Kirit e Recorded In the last 12 months, was t here a time when you were not able to pay the mortgage or rent on time? No 12/16/2024 In the past 12 months, how m any times have you moved where you were living? 0 12/16/2024 At any time in the past 12 m [facility], were you homeless or living in a prison (including now)? No 12/16/2024 Comments No Sex and Gender Information Value Date Recorded Sex Assigned at Not on file Legal Sex Female 3:52 PM EST Gender Identity Not on file Sexual Orientation Not on file Last Filed Vital Signs Vital Sign Reading Time Taken Comments Blood Pressure 118/74 12/30/2024 8:33 AM EDT Pulse 88 12/30/2024 8:33 AM EDT Temperature 36.8 C (98.2 F) 12/19/2024 11:49 AM EDT Respiratory Rate 16 12/30/2024 8:33 AM EDT Oxygen Saturation 95% 12/19/2024 11: 49 AM EDT Inhaled Oxygen Concentration - - Weight 80.8 kg (178 lb 3.2 oz) 12/30/2024 8:33 A M EDT preop 177 Height 157.5 cm (5' 2 ) 12/14/2024 5:52 AM EDT Body Mass Index 32.59 12/14/2024 5:52 AM EDT Plan of Treatment Health Maintenance Due Date Last Done Comments Cervical Cancer Screening 2011 HPV Vaccine (2 - 3-dose series) 05/29/2013 3 BMI Counseling 09/09/2024 Depression Screening 09/09/2024 COVID-19 Vaccine (3 - 2024-2 6 season) 2025 07/13/2021, 06/15/2021 Influenza Vaccination (#1) 2025 Tetanus Vaccination (Every 10 Years) 09/15/2029 09/15/2019, 03/20/2016, 05/01/2013 Lipid Screening Completed 12/02/2024 Goals Goal Patient Goal Type Associated Problems Recent Progress Patient-Stated? Author Increase physical activity Lifestyle Yes Tushar Lazo BS Medical Devices Implanted Type Area [employer] Of [employer] Device Identifier Shelf Expiration Date Model / Serial / Lot Graft Vasc Gelwv St [id number] - [id number] Implanted:Qty : 1 on 12/14/2024 by Isrrael Tay MD at [facility] N/A: [employer]orta [employer] FIDELINA [id number] 10/09/2026 [id number] / [id number] / [id number] Pulmonary Valve And Conduit Sg - [id number] Implanted:Qty : 1 on 12/14/2024 by Isrrael Tay MD at [facility] N/A: Aorta [employer] [id number] 09/07/2029 [id number] / [id number] / Procedures Procedure Name Priority Date/Time Associated Diagnosis Comments LIPID PROFILE Routine 12/02/2024 10:21 AM EDT Aortic valve insufficiency, etiology of cardiac valve disease unspecified Aortic valve stenosis, etiology of cardiac valve disease unspecified from Last 3 Months or Most Recently Relevant to Health Maintenance Results * LIPID PROFILE (12/02/2024 10:21 AM EDT) Cholesterol 139 125 - 199 mg/dL [facility] Comment: TOTAL CHOLESTEROL INTERPRETATION: Less than 200 mg/dL Desireable 200-239 mg/dL Borderline Greater or Equal to 240 mg/dL High LDL Calculated 78 0 - 100 mg/dL [facility] Comment: LDL CHOLESTEROL INTERPRETATION: Less than 100 mg/dL Optimal 100-129 mg/dL Near optimal/above optimal 130-159 mg/dL Borderline High 160-189 mg/dL High Greater or Equal to 190 mg/dL Very High HDL 49 40 - 180 mg/dL [facility] Comment: HDL CHOLESTEROL INTERPRETATION: Less than 40 mg/dL Low Greater than 60 mg/dL Desirable Triglycerides 62 0 - 149 mg/dL [facility] Comment: TOTAL TRIGLYCERIDE INTERPRETATION: Less than 150 mg/dL Normal 150-199 mg/dL Borderline HIgh 200-499 mg/dL High Greater or Equal to 500 mg/dL Very High NONHDL Calculated 90 0 - 129 mg/dL [facility] Comment: NON-HDL INTERPRETATION: Less than 130 mg/dL Desirable 130-159 mg/dL Above Desirable 160-189 mg/dL Borderline High 190-219 mg/dL High Greater than or equal to 220 mg/dL Very High Plasma 12/02/2024 10:2 1 AM EDT 12/02/2024 4:25 PM EDT Isrrael Tay MD CHEMISTRY ORDERABLES Final R esult [facility] [address] from Last 3 Months or Most Recently Relevant to Health Maintenance Insurance [employer] Advance Directives For more information, please contact: [phone] * Full Code (Latest Code Status on File) Date Activated Date Inactivated Comments 12/14/2024 9:32 AM Care Teams Nylon Winder Relationship Specialty Start Date End Date Oneil Stoddard MD [address] [place] [address] PCP - General Family Medicine 10/01/24
--- OUTSIDE RECORDS SUMMARY | 2025-06-24 08:12 | XMS_ITS | Patient Health Record ---
[facility] Address [address] [place] [id number] Care Team Providers Care Peoplesoft Administrator Name Role Phone Jovana Stoddardian Primary Care Provider Roscoe Huntley Unavailable [phone] Allergies No Known Allergies Medications Medication SIG (Take, Route, Frequency, Duration) Notes Start Date End Date Status Naproxen 250 MG 1 tablet with food o r milk as needed Orally every 12 hrs Active hydrOXYzine HCl 25 mg take 1 tablet oral ly 3 times a day, PRN; Duration: 10 days Not-Taking Metoprolol Succinate ER 50 MG 1 tablet Orally Once a day Active Immunizations Vaccine Route Administration Date Status Comme nts xGardasil Unknown 05/01/2013 Administered Tetanus Tdap-Adacel (over 7yrs) Unknown 05/01/2013 Administered Tetanus Tdap-Adacel (over 7yrs) Unknown 03/20/2016 Administered Tetanus Tdap-Adacel (over 7yrs) IM Intramuscular 09/15/2019 Administered COVID 19 Moderna Unknown 06/15/2021 Administered COVID 19 Moderna Unknown 07/13/2021 Administered Problems Problem Type SNOMED Code ICD Code Onset Dates Problem Status W/U Status Risk Notes Problem Adjustment reaction (98518439) ADJUSTMENT REACTION NOS (309.9) Active confirmed Problem Anxiety (19115121) Anxiety (F41.9) Active confirmed Problem Sciatic nerve lesion (551312065) Piriformis syndrome of left side (G57.02) Active confirmed Problem Obesity (512291812) Non morbid obesity due to excess calories (E66.09) Active confirmed Problem Obesity (990412961) Non morbid obesity (E66.9) Active confirmed Vital Signs Heart Rate 68 /min 06/01/2025 Blood pressure diastolic 68 mm Hg 06/01/2025 Height 62 in 06/01/2025 Blood pressure systolic 112 mm Hg 06/01/2025 Weight 187.6 lbs 06/01/2025 BMI 34.31 kg/m2 06/01/2025 Encounters Encounter Location Date Provider Diagnosis [facility] [address] [place], [place] [id number] 12/05/2024 Oneil Bouse Adjustment insomnia F51.02 [facility] [address] [place], [place] [id number] 06/01/2025 R Cal[employer] Audi RUQ abdominal pain R10.11 [facility] [address] [place], [place] [id number] 12/04/2024 Oneil Bouse [facility] [address] [place], [place] [id number] 12/23/2024 Oneil Bouse [facility] [address] [place], [place] [id number] 03/08/2025 Oneil Bouse Assessments Encounter Date Diagnosis (ICD Code) Assessment Notes Treatment Notes Treatment Clinical Notes Section Notes 12/05/2024 Adjustment insomnia (ICD-10 - F51.02) 06/01/2025 RUQ abdominal pain (ICD-10 - R10.11) Plan Of Treatment Pending Test Test Name Order Date Ultrasound : Abdomen limited 06/01/2025 Insurance Providers Payer Name Payer Address Payer Phone Subscriber Number Group Number Insured Name Patient Relationship to Insured Coverage Start Date Coverage End Date [facility] [address] [place] [phone] [id number] Елена Juarez Self - patient is the insured Medications Administered Medication Instructions Date of Administration Dosage Notes Depo- Medrol 40 mg/ml 03/13/2023 1.5 mL Dexamethasone 06/09/2018 1 mL Morphine 01/18/2010 2 mg Medical (General) History Medical History History ICD Code open heart surgery at 11 weeks old, aort ic valve recurrent UTI Surgical History Surgery Date(Month/Year) Aortic Valve Repair 1989 AVR and aortic aneurysm repair 12/2024 Hospitalization History Reason Date(Month/Year) Mastitis- [facility] 01/19/2020 Fluids, Dehydrated- [facility] 2019 Kidney Infection- [facility] 01/2013
== END 2025-06-24 23:59 | disposition home or self-care (01) ==
LOC: RAD 08:08
PROVIDERS: PCP Family Medicine; Visit Provider Family Medicine
DX: R10.11 Right upper quadrant pain (principal)
CPT/HCPCS: 76705